=== PATIENT | male | born 1965 ===

== ENCOUNTER 2018-03-23 15:09 | Inpatient (IN) ==
[2018-03-23] MEDS ORDERED: Isovue-370 500 ML INFUS..BTL IV ONE (15:25)
[2018-03-23] MEDS ORDERED: Ipratropium/Albuterol Neb 3 ML IH ONE (15:25)
[2018-03-23] MEDS ORDERED: methylPREDNISolone 125 MG/2 ML VIAL IVP ONE (15:25)
--- NOTE | 2018-03-23 15:27 | Emergency Department Note ---
Disposition Clinical Impression: HCAP (healthcare-associated pneumonia), Metastatic adenocarcinoma, Respiratory distress, Hospital-acquired pneumonia, Severe sepsis Sepsis Qualifiers: Sepsis type: sepsis due to unspecified organism Qualified Code(s): A41.9 - Sepsis, unspecified organism Disposition: Admitted As Inpatient Condition: Fair Referrals: NONE,PCP [Primary Care Provider] - Forms: ED Satisfaction Letter Time of Disposition: 19:57 General Adult HPI - General Chief complaint: ED Shortness of Breath/Dyspnea Stated complaint: LEONIE-stg 4 cancer Time Seen by Provider: 03/23/18 15:18 Source: patient, family Limitations: no limitations Nursing Notes Reviewed: Yes Vital Signs Reviewed: Yes - History of Present Illness HPI Narrative: 52-year-old male with significant past medical history of metastatic cancer unknown primary site either lung or pancreas presenting to the emergency department with chief complaint of acute onset shortness of breath. According to the patient and his power of sports attorney at bedside this afternoon he was moved from his room to the living room so his room could be cleaned and had sudden onset shortness of breath. They deny any fever or recent illnesses. Patient was just diagnosed with his metastatic cancer 14 days ago. He was admitted here and was fully evaluated at that time. Patient has started radiation but no chemotherapy has been started. At this time patient is on a nonrebreather and denies any shortness of breath. Denies any chest pain or abdominal pain. - Related Data Previous Rx's Medication Instructions Recorded Albuterol Sulfate [Albuterol 1 - 2 puff IH Q4HR PRN 30 Days #1 03/18/18 Inhaler] hfa.aer.ad Alcohol Antiseptic Pads [Alcohol 1 each ACHS #100 med..pad 03/18/18 Pads] Bisacodyl [Dulcolax] 10 mg RC DAILY PRN #30 supp.rect 03/18/18 Blood Sugar Diagnostic [Blood 1 each ACHS #100 strip 03/18/18 Glucose Test Strip] Blood-Glucose Meter [Blood Glucose 1 each ACHS #1 each 03/18/18 Monitoring] Dextrose [Glucose] 4 gm PO PRN PRN #10 tab.chew 03/18/18 DiphenhydraMINE [Benadryl] 25 mg PO Q8HR PRN #10 capsule 03/18/18 FentaNYL PATCH [Duragesic] 25 mcg TD Q72H 9 Days #3 patch.td72 03/18/18 Fluconazole [Diflucan] 100 mg PO DAILY #7 tablet 03/18/18 Fluticasone/Umeclidin/Vilanter 1 each IH DAILY 30 Days #1 03/18/18 [Trelegy Ellipta 100-62.5-25] blst.w.dev Insulin LISPRO [Humalog Kwikpen 0 unit SQ ACHS #5 mls 03/18/18 U-100] Ipratropium/Albuterol Neb [Duoneb] 3 ml IH Q4HWA PRN 30 Days inhsol 03/18/18 Lancets 1 each MC ACHS #100 each 03/18/18 Mag Hydrox/Al Hydrox/Simeth 30 ml PO Q4H PRN #30 udc 03/18/18 [Maalox] Melatonin 3 mg PO HS PRN #10 tablet 03/18/18 Nebulizer and Compressor [Ombra 1 each MC Q4H PRN #1 each 03/18/18 Compressor System] Omeprazole [PriLOSEC] 40 mg PO DAILY@0730 #30 capsule.dr 03/18/18 Polyethylene Glycol 3350 [MiraLAX] 17 gm PO DAILY #30 powd.pack 03/18/18 Sennosides/Docusate Sodium [Senna 1 each PO BID #60 tablet 03/18/18 Plus] Stomatitis Mixture 5 ml PO QIDAC 30 Days mls 03/18/18 levETIRAcetam [Keppra] 500 mg PO Q12HR 30 Days #60 tablet 03/18/18 Dexamethasone [Decadron] 4 mg PO BID 21 Days #25 tab 03/19/18 LORazepam [Ativan] 0.5 mg PO TID PRN 7 Days #28 tablet 03/19/18 OxyCODONE Immed Rel [Roxicodone 10 10 mg PO Q4H PRN 7 Days #42 tab 03/19/18 MG] Allergies Allergy/AdvReac Type Severity Reaction Status Date / Time No Known Allergies Allergy Verified 03/23/18 15:26 All systems ED: reviewed and negative except as stated. Constitutional: Denies: fever, chills Eyes: Reports: as per HPI ENT ED: Reports: as per HPI Cardiovascular: Reports: dyspnea on exertion. Denies: chest pain, palpitations Respiratory: Reports: cough, dyspnea. Denies: hemoptysis, stridor Gastrointestinal: Denies: abdominal pain, nausea, vomiting Genitourinary: Reports: as per HPI Musculoskeletal: Reports: as per HPI Integumentary: Reports: as per HPI Neurological: Denies: numbness, paresthesias Psychiatric: Reports: as per HPI Endocrine: Reports: as per HPI Hematological/Lymphatic: Reports: as per HPI Allergic/Immunologic: Reports: as per HPI Past Medical History - Past Medical History Attestation: Yes The following information was validated with the patient. Source: patient, obtained from family Medical history: Reports: COPD Surgical history: Reports: no surgical history Psychiatric history: Reports: no psych history - Social History Smoking Status: Current every day smoker Smokeless Tobacco Status: No Alcohol use: Reports: none Drug use: Reports: none Physical Exam - General Limitations: no limitations General appearance: alert, in distress (respiratory), cachectic - Head Head exam: atraumatic, normocephalic, normal inspection - Eye Eye exam: Present: normal appearance. Absent: scleral icterus, conjunctival injection - ENT ENT exam: normal exam, mucous membranes moist - Neck Neck exam: Present: normal inspection, full ROM. Absent: tenderness, meningismus - Chest Chest inspection: Present: normal inspection, symmetric chest wall rise. Absent: tenderness, rash - Respiratory Respiratory exam: Present: accessory muscle use, other (Coarse breath sounds bilaterally. Expiratory wheezing heard on the right) - Cardiovascular Cardiovascular exam: Present: normal rhythm, tachycardia, normal heart sounds - Abdominal Exam Abdominal exam: Present: soft, Non-Tender. Absent: distention, guarding, rebound - Extremities Exam Extremities exam: Present: normal inspection, full ROM - Neurological Exam Neurological exam: Present: alert, oriented X3 - Psychiatric Psychiatric exam: Present: normal affect, normal mood - Skin Skin exam: Present: warm, intact Course Course Narrative: 52-year-old male presenting for acute onset shortness of breath. Upon first arrival patient was in significant respiratory distress and placed on nonrebreather and responded well. MS time of assessment he is alert and oriented 3. Hemodynamically stable. Tachycardic in the 120s with oxygen saturation in the upper 90s. Concern for pneumonia versus PE at this time due to patient's significant history. We will obtain basic laboratory analysis including blood cultures, fluid resuscitate, provide with antibiotics and perform a CTA of the chest. Disposition will be admission versus transfer pending evaluation. - Reevaluation(s) Reevaluation #1: Patient's laboratory analysis shows multiple abnormalities including elevated lactic acid, anemia, hyponatremia, elevated troponin. CTA of the chest shows concern for possible pneumonia and worsening metastatic disease. Patient will be given antibiotics for healthcare acquired pneumonia and admitted for further treatment and evaluation. Patient remains alert and oriented 3 and hemodynamically stable. Patient agrees with this plan. I spoke with the hospitalist on-call Dr. Chow who agrees to accept the patient at this time. Vital Signs O2 Sat by Pulse Oximetry 98 03/23/18 15:24 Temperature 97.8 F 03/23/18 15:46 Pulse Rate 125 03/23/18 17:09 Respiratory Rate 26 03/23/18 17:09 Blood Pressure 90/72 03/23/18 17:09 O2 Sat by Pulse Oximetry 99 03/23/18 17:09 Oxygen Delivery Oxygen Delivery Non Rebreather Mask Medical Decision Making - Lab Data Result diagrams: 03/23/18 15:24 03/23/18 15:24 Lab Results 03/23/18 03/23/18 03/23/18 Range/Units 15:24 15:24 15:24 WBC 9.9 D (4.3-11.1) K/mcL RBC 2.68 L (4.19-5.50) M/mcL Hgb 8.2 L (12.9-16.9) g/dL Hct 25.6 L (37.5-50.1) % MCV 95.5 (83.0-100.0) fL MCH 30.6 (28.0-33.3) pg MCHC 32.0 (31.6-35.5) g/dL RDW 21.3 H (11.5-14.5) % Plt Count 163 (140-400) K/mcL MPV 11.7 (9.4-12.4) fL Immature Gran % Test Not Performed Seg Neutrophils % 68.0 % Band Neutrophils % 30.0 H (0-4) % Lymphocytes % 2.0 % Monocytes % Test Not Performed Eosinophils % Test Not Performed Basophils % Test Not Performed Neutrophils # 9.7 H (1.6-8.9) K/mcL Lymphocytes # 0.2 L (0.6-4.6) K/mcL Monocytes # Test Not Performed Eosinophils # Test Not Performed Basophils # Test Not Performed Nucleated RBCs/100 WBC 3.1 H (0) /100 WBC Platelet Estimate Normal (Normal) PT 16.2 H (9.4-12.1) Seconds INR 1.4 APTT 26.5 (26.0-36.0) Seconds Sample Site ABG pH (7.32-7.45) pH Units ABG pCO2 (35-45) mmHg ABG pO2 (85-104) mmHg ABG HCO3 (21-27) mEq/L ABG Total CO2 (20-26) mEq/L ABG O2 Saturation (95-98) % ABG Base Excess (-2 to 3) mEq/L Regino Test O2 Delivery Device Inspired O2 (1-15=lpm [id number]=%) Sodium 127 L (136-145) mEq/L Potassium 4.8 (3.5-5.1) mEq/L Chloride 89 L (98-107) mEq/L Carbon Dioxide 21 L (23-29) mEq/L BUN 26 H (6-20) mg/dL Creatinine 0.94 (0.70-1.30) mg/dL Est GFR ( Amer) > 60 (> 60) Est GFR (Non-Af Amer) > 60 (> 60) BUN/Creatinine Ratio 28 H (6-26) Glucose 138 H (70-105) mg/dL Calculated Osmolality 271 L (280-300) Lactic Acid (0.5-2.2) mmol/L Calcium 9.1 (8.6-10.3) mg/dL Phosphorus 4.2 (2.7-4.5) mg/dL Magnesium 2.1 (1.6-2.6) mg/dL Total Bilirubin 2.0 H (0.3-1.0) mg/dL Direct Bilirubin 0.7 H (0.0-0.2) mg/dL Indirect Bilirubin 1.3 H (0.0-1.2) mg/dL AST 294 H (13-39) Units/L ALT 175 H (7-52) Units/L Alkaline Phosphatase 253 H (34-104) Units/L Troponin I 0.07 H* (< 0.04) ng/mL Serum Total Protein 6.0 L (6.4-8.9) g/dL Albumin 3.6 (3.5-5.7) g/dL Globulin 2.4 (2.4-3.5) g/dL Albumin/Globulin Ratio 1.5 (1.1-2.2) Urine Color (Yellow) Urine Clarity (Clear) Urine pH (5.0-8.0) pH Units Ur Specific [place] (1.010-1.025) Urine Protein (Neg-Trace) mg/dL Urine Glucose (UA) (Normal) mg/dL Urine Ketones (Negative) mg/dL Urine Blood (Negative) Urine Nitrite (Negative) Urine Bilirubin (Negative) Urine Urobilinogen (Normal) mg/dL Ur Leukocyte Esterase (Negative) Ur Culture Indicated? (NO) Blood Type Antibody Screen 03/23/18 03/23/18 03/23/18 Range/Units 15:33 15:47 16:18 WBC (4.3-11.1) K/mcL RBC (4.19-5.50) M/mcL Hgb (12.9-16.9) g/dL Hct (37.5-50.1) % MCV (83.0-100.0) fL MCH (28.0-33.3) pg MCHC (31.6-35.5) g/dL RDW (11.5-14.5) % Plt Count (140-400) K/mcL MPV (9.4-12.4) fL Immature Gran % Seg Neutrophils % % Band Neutrophils % (0-4) % Lymphocytes % % Monocytes % Eosinophils % Basophils % Neutrophils # (1.6-8.9) K/mcL Lymphocytes # (0.6-4.6) K/mcL Monocytes # Eosinophils # Basophils # Nucleated RBCs/100 WBC (0) /100 WBC Platelet Estimate (Normal) PT (9.4-12.1) Seconds INR APTT (26.0-36.0) Seconds Sample Site L Radial ABG pH 7.44 (7.32-7.45) pH Units ABG pCO2 36 (35-45) mmHg ABG pO2 81 L (85-104) mmHg ABG HCO3 24 (21-27) mEq/L ABG Total CO2 25 (20-26) mEq/L ABG O2 Saturation 96 (95-98) % ABG Base Excess 0 (-2 to 3) mEq/L Regino Test Positive O2 Delivery Device NRB Inspired O2 15.0 (1-15=lpm gl82-239=%) Sodium (136-145) mEq/L Potassium (3.5-5.1) mEq/L Chloride (98-107) mEq/L Carbon Dioxide (23-29) mEq/L BUN (6-20) mg/dL Creatinine (0.70-1.30) mg/dL Est GFR ( Amer) (> 60) Est GFR (Non-Af Amer) (> 60) BUN/Creatinine Ratio (6-26) Glucose (70-105) mg/dL Calculated Osmolality (280-300) Lactic Acid 7.6 H* (0.5-2.2) mmol/L Calcium (8.6-10.3) mg/dL Phosphorus (2.7-4.5) mg/dL Magnesium (1.6-2.6) mg/dL Total Bilirubin (0.3-1.0) mg/dL Direct Bilirubin (0.0-0.2) mg/dL Indirect Bilirubin (0.0-1.2) mg/dL AST (13-39) Units/L ALT (7-52) Units/L Alkaline Phosphatase (34-104) Units/L Troponin I (< 0.04) ng/mL Serum Total Protein (6.4-8.9) g/dL Albumin (3.5-5.7) g/dL Globulin (2.4-3.5) g/dL Albumin/Globulin Ratio (1.1-2.2) Urine Color Yellow (Yellow) Urine Clarity Clear (Clear) Urine pH 6.0 (5.0-8.0) pH Units Ur Specific [place] 1.012 (1.010-1.025) Urine Protein Negative (Neg-Trace) mg/dL Urine Glucose (UA) Normal (Normal) mg/dL Urine Ketones Negative (Negative) mg/dL Urine Blood Negative (Negative) Urine Nitrite Negative (Negative) Urine Bilirubin Negative (Negative) Urine Urobilinogen Normal (Normal) mg/dL Ur Leukocyte Esterase Negative (Negative) Ur Culture Indicated? NO (NO) Blood Type Antibody Screen 03/23/18 03/23/18 03/23/18 Range/Units 18:21 18:21 19:24 WBC (4.3-11.1) K/mcL RBC (4.19-5.50) M/mcL Hgb (12.9-16.9) g/dL Hct (37.5-50.1) % MCV (83.0-100.0) fL MCH (28.0-33.3) pg MCHC (31.6-35.5) g/dL RDW (11.5-14.5) % Plt Count (140-400) K/mcL MPV (9.4-12.4) fL Immature Gran % Seg Neutrophils % % Band Neutrophils % (0-4) % Lymphocytes % % Monocytes % Eosinophils % Basophils % Neutrophils # (1.6-8.9) K/mcL Lymphocytes # (0.6-4.6) K/mcL Monocytes # Eosinophils # Basophils # Nucleated RBCs/100 WBC (0) /100 WBC Platelet Estimate (Normal) PT (9.4-12.1) Seconds INR APTT (26.0-36.0) Seconds Sample Site ABG pH (7.32-7.45) pH Units ABG pCO2 (35-45) mmHg ABG pO2 (85-104) mmHg ABG HCO3 (21-27) mEq/L ABG Total CO2 (20-26) mEq/L ABG O2 Saturation (95-98) % ABG Base Excess (-2 to 3) mEq/L Regino Test O2 Delivery Device Inspired O2 (1-15=lpm [id number]=%) Sodium (136-145) mEq/L Potassium (3.5-5.1) mEq/L Chloride (98-107) mEq/L Carbon Dioxide (23-29) mEq/L BUN (6-20) mg/dL Creatinine (0.70-1.30) mg/dL Est GFR ( Amer) (> 60) Est GFR (Non-Af Amer) (> 60) BUN/Creatinine Ratio (6-26) Glucose (70-105) mg/dL Calculated Osmolality (280-300) Lactic Acid 3.0 H 2.7 H (0.5-2.2) mmol/L Calcium (8.6-10.3) mg/dL Phosphorus (2.7-4.5) mg/dL Magnesium (1.6-2.6) mg/dL Total Bilirubin (0.3-1.0) mg/dL Direct Bilirubin (0.0-0.2) mg/dL Indirect Bilirubin (0.0-1.2) mg/dL AST (13-39) Units/L ALT (7-52) Units/L Alkaline Phosphatase (34-104) Units/L Troponin I (< 0.04) ng/mL Serum Total Protein (6.4-8.9) g/dL Albumin (3.5-5.7) g/dL Globulin (2.4-3.5) g/dL Albumin/Globulin Ratio (1.1-2.2) Urine Color (Yellow) Urine Clarity (Clear) Urine pH (5.0-8.0) pH Units Ur Specific [place] (1.010-1.025) Urine Protein (Neg-Trace) mg/dL Urine Glucose (UA) (Normal) mg/dL Urine Ketones (Negative) mg/dL Urine Blood (Negative) Urine Nitrite (Negative) Urine Bilirubin (Negative) Urine Urobilinogen (Normal) mg/dL Ur Leukocyte Esterase (Negative) Ur Culture Indicated? (NO) Blood Type A POSITIVE Antibody Screen NEGATIVE - EKG Data EKG #1 EKG attestation: Yes I reviewed and interpreted this EKG. EKG results narrative: Sinus tachycardia. 124 bpm. DC interval 117, QRS 96, QTC 428. No sign of acute ST segment elevation or ischemia. Compared to previous EKG completed on 03/07/2018 new sinus tachycardia but otherwise no changes
--- NOTE | 2018-03-23 15:31 | Emergency Department Note ---
Disposition Clinical Impression: Hospital-acquired pneumonia, Severe sepsis Disposition: Admitted As Inpatient Condition: Fair Referrals: NONE,PCP [Primary Care Provider] - Forms: ED Satisfaction Letter General Adult HPI - General Chief complaint: ED Shortness of Breath/Dyspnea Stated complaint: LEONIE-stg 4 cancer Time Seen by Provider: 03/23/18 15:18 - Related Data Previous Rx's Medication Instructions Recorded Albuterol Sulfate [Albuterol 1 - 2 puff IH Q4HR PRN 30 Days #1 03/18/18 Inhaler] hfa.aer.ad Alcohol Antiseptic Pads [Alcohol 1 each ACHS #100 med..pad 03/18/18 Pads] Bisacodyl [Dulcolax] 10 mg RC DAILY PRN #30 supp.rect 03/18/18 Blood Sugar Diagnostic [Blood 1 each MC ACHS #100 strip 03/18/18 Glucose Test Strip] Blood-Glucose Meter [Blood Glucose 1 each MC ACHS #1 each 03/18/18 Monitoring] Dextrose [Glucose] 4 gm PO PRN PRN #10 tab.chew 03/18/18 DiphenhydraMINE [Benadryl] 25 mg PO Q8HR PRN #10 capsule 03/18/18 FentaNYL PATCH [Duragesic] 25 mcg TD Q72H 9 Days #3 patch.td72 03/18/18 Fluconazole [Diflucan] 100 mg PO DAILY #7 tablet 03/18/18 Fluticasone/Umeclidin/Vilanter 1 each IH DAILY 30 Days #1 03/18/18 [Trelegy Ellipta 100-62.5-25] blst.w.dev Insulin LISPRO [Humalog Kwikpen 0 unit SQ ACHS #5 mls 03/18/18 U-100] Ipratropium/Albuterol Neb [Duoneb] 3 ml IH Q4HWA PRN 30 Days inhsol 03/18/18 Lancets 1 each MC ACHS #100 each 03/18/18 Mag Hydrox/Al Hydrox/Simeth 30 ml PO Q4H PRN #30 udc 03/18/18 [Maalox] Melatonin 3 mg PO HS PRN #10 tablet 03/18/18 Nebulizer and Compressor [Ombra 1 each MC Q4H PRN #1 each 03/18/18 Compressor System] Omeprazole [PriLOSEC] 40 mg PO DAILY@729 #30 capsule. 03/18/18 Polyethylene Glycol 3350 [MiraLAX] 17 gm PO DAILY #30 powd.pack 03/18/18 Sennosides/Docusate Sodium [Senna 1 each PO BID #60 tablet 03/18/18 Plus] Stomatitis Mixture 5 ml PO QIDAC 30 Days mls 03/18/18 levETIRAcetam [Keppra] 500 mg PO Q12HR 30 Days #60 tablet 03/18/18 Dexamethasone [Decadron] 4 mg PO BID 21 Days #25 tab 03/19/18 LORazepam [Ativan] 0.5 mg PO TID PRN 7 Days #28 tablet 03/19/18 OxyCODONE Immed Rel [Roxicodone 10 10 mg PO Q4H PRN 7 Days #42 tab 03/19/18 MG] Allergies Allergy/AdvReac Type Severity Reaction Status Date / Time No Known Allergies Allergy Verified 03/23/18 15:26 Past Medical History - Past Medical History Medical history: Reports: COPD Surgical history: Reports: no surgical history Psychiatric history: Reports: no psych history - Social History Smoking Status: Current every day smoker Smokeless Tobacco Status: No Alcohol use: Reports: none Drug use: Reports: none Course Vital Signs O2 Sat by Pulse Oximetry 98 03/23/18 15:24 Temperature 97.8 F 03/23/18 15:46 Pulse Rate 126 03/23/18 19:54 Respiratory Rate 24 03/23/18 19:54 Blood Pressure 100/88 03/23/18 19:54 O2 Sat by Pulse Oximetry 97 03/23/18 19:54 Oxygen Delivery Oxygen Delivery Non Rebreather Mask Medical Decision Making - Lab Data Result diagrams: 03/23/18 15:24 03/23/18 15:24 Lab Results 03/23/18 03/23/18 03/23/18 Range/Units 15:24 15:24 15:24 WBC 9.9 D (4.3-11.1) K/mcL RBC 2.68 L (4.19-5.50) M/mcL Hgb 8.2 L (12.9-16.9) g/dL Hct 25.6 L (37.5-50.1) % MCV 95.5 (83.0-100.0) fL MCH 30.6 (28.0-33.3) pg MCHC 32.0 (31.6-35.5) g/dL RDW 21.3 H (11.5-14.5) % Plt Count 163 (140-400) K/mcL MPV 11.7 (9.4-12.4) fL Immature Gran % Test Not Performed Seg Neutrophils % 68.0 % Band Neutrophils % 30.0 H (0-4) % Lymphocytes % 2.0 % Monocytes % Test Not Performed Eosinophils % Test Not Performed Basophils % Test Not Performed Neutrophils # 9.7 H (1.6-8.9) K/mcL Lymphocytes # 0.2 L (0.6-4.6) K/mcL Monocytes # Test Not Performed Eosinophils # Test Not Performed Basophils # Test Not Performed Nucleated RBCs/100 WBC 3.1 H (0) /100 WBC Platelet Estimate Normal (Normal) PT 16.2 H (9.4-12.1) Seconds INR 1.4 APTT 26.5 (26.0-36.0) Seconds Sample Site ABG pH (7.32-7.45) pH Units ABG pCO2 (35-45) mmHg ABG pO2 (85-104) mmHg ABG HCO3 (21-27) mEq/L ABG Total CO2 (20-26) mEq/L ABG O2 Saturation (95-98) % ABG Base Excess (-2 to 3) mEq/L Regino Test O2 Delivery Device Inspired O2 (1-15=lpm [id number]=%) Sodium 127 L (136-145) mEq/L Potassium 4.8 (3.5-5.1) mEq/L Chloride 89 L (98-107) mEq/L Carbon Dioxide 21 L (23-29) mEq/L BUN 26 H (6-20) mg/dL Creatinine 0.94 (0.70-1.30) mg/dL Est GFR ( Amer) > 60 (> 60) Est GFR (Non-Af Amer) > 60 (> 60) BUN/Creatinine Ratio 28 H (6-26) Glucose 138 H (70-105) mg/dL Calculated Osmolality 271 L (280-300) Lactic Acid (0.5-2.2) mmol/L Calcium 9.1 (8.6-10.3) mg/dL Phosphorus 4.2 (2.7-4.5) mg/dL Magnesium 2.1 (1.6-2.6) mg/dL Total Bilirubin 2.0 H (0.3-1.0) mg/dL Direct Bilirubin 0.7 H (0.0-0.2) mg/dL Indirect Bilirubin 1.3 H (0.0-1.2) mg/dL AST 294 H (13-39) Units/L ALT 175 H (7-52) Units/L Alkaline Phosphatase 253 H (34-104) Units/L Troponin I 0.07 H* (< 0.04) ng/mL Serum Total Protein 6.0 L (6.4-8.9) g/dL Albumin 3.6 (3.5-5.7) g/dL Globulin 2.4 (2.4-3.5) g/dL Albumin/Globulin Ratio 1.5 (1.1-2.2) Urine Color (Yellow) Urine Clarity (Clear) Urine pH (5.0-8.0) pH Units Ur Specific [place] (1.010-1.025) Urine Protein (Neg-Trace) mg/dL Urine Glucose (UA) (Normal) mg/dL Urine Ketones (Negative) mg/dL Urine Blood (Negative) Urine Nitrite (Negative) Urine Bilirubin (Negative) Urine Urobilinogen (Normal) mg/dL Ur Leukocyte Esterase (Negative) Ur Culture Indicated? (NO) Blood Type Antibody Screen 03/23/18 03/23/18 03/23/18 Range/Units 15:33 15:47 16:18 WBC (4.3-11.1) K/mcL RBC (4.19-5.50) M/mcL Hgb (12.9-16.9) g/dL Hct (37.5-50.1) % MCV (83.0-100.0) fL MCH (28.0-33.3) pg MCHC (31.6-35.5) g/dL RDW (11.5-14.5) % Plt Count (140-400) K/mcL MPV (9.4-12.4) fL Immature Gran % Seg Neutrophils % % Band Neutrophils % (0-4) % Lymphocytes % % Monocytes % Eosinophils % Basophils % Neutrophils # (1.6-8.9) K/mcL Lymphocytes # (0.6-4.6) K/mcL Monocytes # Eosinophils # Basophils # Nucleated RBCs/100 WBC (0) /100 WBC Platelet Estimate (Normal) PT (9.4-12.1) Seconds INR APTT (26.0-36.0) Seconds Sample Site L Radial ABG pH 7.44 (7.32-7.45) pH Units ABG pCO2 36 (35-45) mmHg ABG pO2 81 L (85-104) mmHg ABG HCO3 24 (21-27) mEq/L ABG Total CO2 25 (20-26) mEq/L ABG O2 Saturation 96 (95-98) % ABG Base Excess 0 (-2 to 3) mEq/L Regino Test Positive O2 Delivery Device NRB Inspired O2 15.0 (1-15=lpm [id number]=%) Sodium (136-145) mEq/L Potassium (3.5-5.1) mEq/L Chloride (98-107) mEq/L Carbon Dioxide (23-29) mEq/L BUN (6-20) mg/dL Creatinine (0.70-1.30) mg/dL Est GFR ( Amer) (> 60) Est GFR (Non-Af Amer) (> 60) BUN/Creatinine Ratio (6-26) Glucose (70-105) mg/dL Calculated Osmolality (280-300) Lactic Acid 7.6 H* (0.5-2.2) mmol/L Calcium (8.6-10.3) mg/dL Phosphorus (2.7-4.5) mg/dL Magnesium (1.6-2.6) mg/dL Total Bilirubin (0.3-1.0) mg/dL Direct Bilirubin (0.0-0.2) mg/dL Indirect Bilirubin (0.0-1.2) mg/dL AST (13-39) Units/L ALT (7-52) Units/L Alkaline Phosphatase (34-104) Units/L Troponin I (< 0.04) ng/mL Serum Total Protein (6.4-8.9) g/dL Albumin (3.5-5.7) g/dL Globulin (2.4-3.5) g/dL Albumin/Globulin Ratio (1.1-2.2) Urine Color Yellow (Yellow) Urine Clarity Clear (Clear) Urine pH 6.0 (5.0-8.0) pH Units Ur Specific [place] 1.012 (1.010-1.025) Urine Protein Negative (Neg-Trace) mg/dL Urine Glucose (UA) Normal (Normal) mg/dL Urine Ketones Negative (Negative) mg/dL Urine Blood Negative (Negative) Urine Nitrite Negative (Negative) Urine Bilirubin Negative (Negative) Urine Urobilinogen Normal (Normal) mg/dL Ur Leukocyte Esterase Negative (Negative) Ur Culture Indicated? NO (NO) Blood Type Antibody Screen 03/23/18 03/23/18 03/23/18 Range/Units 18:21 18:21 19:24 WBC (4.3-11.1) K/mcL RBC (4.19-5.50) M/mcL Hgb (12.9-16.9) g/dL Hct (37.5-50.1) % MCV (83.0-100.0) fL MCH (28.0-33.3) pg MCHC (31.6-35.5) g/dL RDW (11.5-14.5) % Plt Count (140-400) K/mcL MPV (9.4-12.4) fL Immature Gran % Seg Neutrophils % % Band Neutrophils % (0-4) % Lymphocytes % % Monocytes % Eosinophils % Basophils % Neutrophils # (1.6-8.9) K/mcL Lymphocytes # (0.6-4.6) K/mcL Monocytes # Eosinophils # Basophils # Nucleated RBCs/100 WBC (0) /100 WBC Platelet Estimate (Normal) PT (9.4-12.1) Seconds INR APTT (26.0-36.0) Seconds Sample Site ABG pH (7.32-7.45) pH Units ABG pCO2 (35-45) mmHg ABG pO2 (85-104) mmHg ABG HCO3 (21-27) mEq/L ABG Total CO2 (20-26) mEq/L ABG O2 Saturation (95-98) % ABG Base Excess (-2 to 3) mEq/L Regino Test O2 Delivery Device Inspired O2 (1-15=lpm lr35-113=%) Sodium (136-145) mEq/L Potassium (3.5-5.1) mEq/L Chloride (98-107) mEq/L Carbon Dioxide (23-29) mEq/L BUN (6-20) mg/dL Creatinine (0.70-1.30) mg/dL Est GFR ( Amer) (> 60) Est GFR (Non-Af Amer) (> 60) BUN/Creatinine Ratio (6-26) Glucose (70-105) mg/dL Calculated Osmolality (280-300) Lactic Acid 3.0 H 2.7 H (0.5-2.2) mmol/L Calcium (8.6-10.3) mg/dL Phosphorus (2.7-4.5) mg/dL Magnesium (1.6-2.6) mg/dL Total Bilirubin (0.3-1.0) mg/dL Direct Bilirubin (0.0-0.2) mg/dL Indirect Bilirubin (0.0-1.2) mg/dL AST (13-39) Units/L ALT (7-52) Units/L Alkaline Phosphatase (34-104) Units/L Troponin I (< 0.04) ng/mL Serum Total Protein (6.4-8.9) g/dL Albumin (3.5-5.7) g/dL Globulin (2.4-3.5) g/dL Albumin/Globulin Ratio (1.1-2.2) Urine Color (Yellow) Urine Clarity (Clear) Urine pH (5.0-8.0) pH Units Ur Specific [place] (1.010-1.025) Urine Protein (Neg-Trace) mg/dL Urine Glucose (UA) (Normal) mg/dL Urine Ketones (Negative) mg/dL Urine Blood (Negative) Urine Nitrite (Negative) Urine Bilirubin (Negative) Urine Urobilinogen (Normal) mg/dL Ur Leukocyte Esterase (Negative) Ur Culture Indicated? (NO) Blood Type A POSITIVE Antibody Screen NEGATIVE Critical Care Time Critical Care Time: Yes Total Critical Care Time: 45 Attestation: Critical care performed: Time is exclusive of separately billable procedures. Time includes: direct patient care, patient reassessment, coordination of patient care, interpretation of data (laboratory data, radiology data, and respiratory data), review of patient's medical records, medical consultation and documentation of patient care. Procedures included in critical care time: Procedures excluded from critical care time: Attestation Statement - Attestation Attestation: I examined this patient and my medical decision-making was reviewed with the Resident Physician. I agree with the documented findings, disposition and treatment plan as described except to the extent set forth below. Patient presents to the ED with shortness of breath. He is brought in by his brother. 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 He states he was short of breath today so brings him for evaluation. Patient was recently diagnosed 2 weeks ago with his cancer. He has been undergoing some radiation. On examination he is in no acute distress. Lungs with diffuse wheezing. He was satting in the 70s. He states he feels fine on nonrebreather. Plan. Septic workup. Nebs and steroids. Reevaluate. Patient reevaluated. Still in no distress. CTA does not reveal any blood clots. He is received broad-spectrum in about X. He has had a 30 per kidney bolus of fluids. Repeat lactate is ordered. Discussed with hospitalist Dr. Pascual who accepts. Recommends ICU admission. I agree. I did discuss the patient's prognosis with him. Patient still wants to be a full code and states he wants everything done. Chest X-Ray 03/23/18 15:24 IMPRESSION: Mediastinal and right hilar lymph node mass again evident. Interval development of right pleural effusion as well as left basilar airspace disease and diffuse right lung airspace disease, greatest within its base. Findings are suggestive of pneumonia. Given some prominence of interstitial markings, component of edema or lymphangitic spread of carcinoma could be considered. D/ / Eboni Gifford Cha, MD / Eboni Gifford Cha, MD Interpreting Provider: Eboni Gifford Cha, MD Chest CTA 03/23/18 15:25 IMPRESSION: No evidence of pulmonary embolism. Right hilar infiltrative mass, likely related to neoplasm, encasing the right pulmonary artery, right pulmonary veins and right mainstem bronchus, mildly increased in size since the prior study. Mediastinal lymphadenopathy, contiguous with the right hilar mass, likely related to metastatic disease. Interval volume loss with consolidation in the posterior right upper lobe, likely related to atelectasis, with underlying neoplasm and possible superimposed infection/inflammation. Scattered lung nodules, grossly stable, likely related to metastatic disease. Interval increased airspace consolidation at the bilateral lung bases, likely related to atelectasis and superimposed pneumonia. Liver metastasis, likely increased. Bilateral adrenal metastasis, right more than left. Acute to subacute pathologic fracture of the T6 with 70% height loss, progressed. Mild acute pathologic fracture at the superior endplate T3 with 10% height loss, new since the prior study. Mildly prominent main pulmonary artery size, likely related to mild pulmonary hypertension. D/ / Yan Santiago MD / Yan Santiago MD Interpreting Provider: Yan Santiago MD
[2018-03-23 15:47] LABS: Hematocrit 25.6 % (37.5-50.1); Hemoglobin 8.2 g/dL (12.9-16.9); Mean Corpuscular Hemoglobin 30.6 pg (28.0-33.3); Mean Corpuscular Volume 95.5 fL (83.0-100.0); Mean Platelet Volume 11.7 fL (9.4-12.4); Nucleated Red Blood Cells 3.1 /100 WBC (0); Platelet Count 163 K/mcL (140-400); Red Blood Count 2.68 M/mcL (4.19-5.50); Red Cell Distribution Width 21.3 % (11.5-14.5)
[2018-03-23 15:51] LABS: ABG Base Excess 0 mEq/L (-2 to 3); ABG HCO3 24 mEq/L (21-27); ABG Oxygen Saturation 96 % (95-98); ABG PCO2 36 mmHg (35-45); ABG PH 7.44 pH Units (7.32-7.45); ABG PO2 81 mmHg (85-104); ABG TCO2 25 mEq/L (20-26)
[2018-03-23 15:55] LABS: INR 1.4; Prothrombin Time 16.2 Seconds (9.4-12.1)
[2018-03-23 15:57] LABS: Activated Partial Thrombo Time 26.5 Seconds (26.0-36.0)
[2018-03-23 16:09] LABS: Alanine Aminotransferase 175 Units/L (7-52); Albumin 3.6 g/dL (3.5-5.7); Albumin/Globulin Ratio 1.5 (1.1-2.2); Alkaline Phosphatase 253 Units/L (34-104); Aspartate Amino Transferase 294 Units/L (13-39); BUN/Creatinine Ratio 28 (6-26); Bilirubin,Direct 0.7 mg/dL (0.0-0.2); Bilirubin,Indirect 1.3 mg/dL (0.0-1.2); Blood Urea Nitrogen 26 mg/dL (6-20); Calcium 9.1 mg/dL (8.6-10.3); Carbon Dioxide 21 mEq/L (23-29); Chloride 89 mEq/L (98-107); Globulin 2.4 g/dL (2.4-3.5); Glucose 138 mg/dL (70-105); Magnesium 2.1 mg/dL (1.6-2.6); Osmolality,Calculated 271 (280-300); Phosphorous 4.2 mg/dL (2.7-4.5); Potassium 4.8 mEq/L (3.5-5.1); Sodium 127 mEq/L (136-145); eGFR For Non-African Americans > 60 (> 60)
[2018-03-23 16:13] LABS: Troponin I 0.07 ng/mL (< 0.04)
[2018-03-23] MEDS ORDERED: 0.9 % Sodium Chloride 1,000 ML IVC ONE ×2 (16:24→16:42)
[2018-03-23 16:28] LABS: Lymphocytes # 0.2 K/mcL (0.6-4.6); Neutrophils # 9.7 K/mcL (1.6-8.9); Platelet Estimate Normal (Normal)
[2018-03-23] MEDS ORDERED: Cefepime HCl 2,000 MG in Water for inj. (sterile) 20 ML 20 ML IVP STA (16:42)
[2018-03-23] MEDS ORDERED: Piperacillin/Tazobactam 3.375 GM in 0.9 % Sodium Chloride Mini Bag 100 ML IVPB ONE (16:42)
[2018-03-23 16:52] LABS: Bilirubin,Urine Negative (Negative); Blood,Urine Negative (Negative); Clarity,Urine Clear (Clear); Color,Urine Yellow (Yellow); Glucose,Urine (UA) Normal (Normal); Ketones,Urine Negative (Negative); Leukocyte Esterase,Urine Negative (Negative); Nitrite,Urine Negative (Negative); Protein,Urine Negative (Neg-Trace); Specific Gravity,Urine 1.012 (1.010-1.025); Urobilinogen,Urine Normal (Normal)
[2018-03-23] MEDS ORDERED: Dexmedetomidine HCl 400 MCG/100 ML MLS IVC ONE (21:40)
[2018-03-23] MEDS ORDERED: Naloxone 0.4 MG/ML INJ IVP PRN (21:41)
[2018-03-23] MEDS ORDERED: Vancomycin (wt based) 1,000 MG VIAL IVPB SCH (22:00)
[2018-03-23] MEDS ORDERED: Dextrose Gel 15 GM/37.5 ML TUBE PO PRN ×2 (22:17)
[2018-03-23] MEDS ORDERED: *HR* Dextrose 50 % in Water (Syg) 50 ML SYRINGE IVP PRN (22:17)
[2018-03-23] MEDS ORDERED: D5% in Water 1,000 ML IVC PRN (22:17)
--- NOTE | 2018-03-23 22:19 | Internal Med History&Physical ---
Date of Encounter: 03/23/18 Time of Encounter: 21:20 Internal Medicine - H&P: HPI Chief complaint: Acute 87 hypoxic respiratory failure Admitted From: Emergency Dept Plans for Post Hospital Care: Home History of present illness: Mr. Timmons is a 52 year old male Patient presented to the ER with shortness of breath and hypoxia. He was recently discharged from the hospital less than a week ago, diagnosed with metastatic cancer, anemia, hyponatremia and COPD exacerbation. He states that he was with his home health nurse, who noted that he had low oxygen despite being on 4 L nasal cannula. Patient is also becoming short of breath, so the decision was made to take the patient back to the hospital for further evalua tion. Patient's brother who is the [employer]EL[employer] is present at bedside and assists with questions. In the emergency room patient's hemoglobin was found to be 8.2, and sodium of 127. Patient's ABG showed a pH of 7.44, PCO2 of 36 and a PO2 of 81. Patient has elevated liver enzymes, as well as a troponin of 0.07. Patient's lactic acid also was elevated at 7.6, which improved to 3.0 and 2.7 on recheck. Patient's urinalysis was negative. Chest x-ray showed medullary and right hilar mass with a right pleural effusion and possible pneumonia. This is questionable in his setting of metastatic cancer as this may be spread of his carcinoma. CT angios was ordered that showed pleural effusion and right hilar inferior mass. This is likely thought to be neoplasm which was increased from his previous imaging. There are also nodules liver masses and adrenal mass is seen. Patient's EKG showed sinus tachycardia with a rate of 124 but no ischemic changes. Patient was put on an oxygen mask at 15 L/m saturations in the low 90s. Patient's blood pressure was 79/60 initially in the emergency room, he was given 2 L of normal saline boluses. He was admitted to the ICU for further m anagement. Upon my evaluation in the ICU patient is working hard to breathe with the oxygen mask. I discussed with the patient and his DPOA that BiPAP would be our next step, and they agreed. Patient denies chest pain, nausea, vomiting, diarrhea, constipation and abdominal pain. Shortness of breath is improving but his oxygenation continues to be in the low 90s to upper to mid 80s. Discussed with the patient and [employer]EL[employer] regarding CODE STATUS and possible intubation, and at this point the patient and DPOA request everything to be done including intubation if necessary. He is a full code. Past Med Surg Social Fam HX - Past Medical History Medical history: COPD Additional medical history: lung cancer w/brain mets Psychiatric history: no psych history - Past Surgical History Surgical History: no surgical history - Social History Smoking Status: Current every day smoker Smokeless Tobacco Status: No Alcohol use: none Drug use: none - Family History Father Hx Family Respiratory Disorders: Yes (COPD) Internal Medicine - H&P: Meds Albuterol Sulfate [Albuterol Inhaler] 1 - 2 puff IH Q4HR PRN 30 Days #1 hfa.aer.ad 03/18/18 [Rx] Alcohol Antiseptic Pads [Alcohol Pads] 1 each TP ACHS #100 med..pad 03/18/18 [Rx] Bisacodyl [Dulcolax] 10 mg RC DAILY PRN #30 supp.rect 03/18/18 [Rx] Blood Sugar Diagnostic [Blood Glucose Test Strip] 1 each MC ACHS #100 strip 03/18/18 [Rx] Blood-Glucose Meter [Blood Glucose Monitoring] 1 each MC ACHS #1 each 03/18/18 [Rx] Dextrose [Glucose] 4 gm PO PRN PRN #10 tab.chew 03/18/18 [Rx] DiphenhydraMINE [Benadryl] 25 mg PO Q8HR PRN #10 capsule 03/18/18 [Rx] FentaNYL PATCH [Duragesic] 25 mcg TD Q72H 9 Days #3 patch.td72 03/18/18 [Rx] Fluconazole [Diflucan] 100 mg PO DAILY #7 tablet 03/18/18 [Rx] Fluticasone/Umeclidin/Vilanter [Trelegy Ellipta 100-62.5-25] 1 each IH DAILY 30 Days #1 blst.w.dev 03/18/18 [Rx] Insulin LISPRO [Humalog Kwikpen U-100] 0 unit SQ ACHS #5 mls 03/18/18 [Rx] Ipratropium/Albuterol Neb [Duoneb] 3 ml IH Q4HWA PRN 30 Days inhsol 03/18/18 [Rx] Lancets 1 each MC ACHS #100 each 03/18/18 [Rx] Mag Hydrox/Al Hydrox/Simeth [Maalox] 30 ml PO Q4H PRN #30 udc 03/18/18 [Rx] Melatonin 3 mg PO HS PRN #10 tablet 03/18/18 [Rx] Nebulizer and Compressor [Ombra Compressor System] 1 each MC Q4H PRN #1 each 03/18/18 [Rx] Omeprazole [PriLOSEC] 40 mg PO DAILY@0730 #30 capsule.dr 03/18/18 [Rx] Polyethylene Glycol 3350 [MiraLAX] 17 gm PO DAILY #30 powd.pack 03/18/18 [Rx] Sennosides/Docusate Sodium [Senna Plus] 1 each PO BID #60 tablet 03/18/18 [Rx] Stomatitis Mixture 5 ml PO QIDAC 30 Days mls 03/18/18 [Rx] levETIRAcetam [Keppra] 500 mg PO Q12HR 30 Days #60 tablet 03/18/18 [Rx] Dexamethasone [Decadron] 4 mg PO BID 21 Days #25 tab 03/19/18 [Rx] LORazepam [Ativan] 0.5 mg PO TID PRN 7 Days #28 tablet 03/19/18 [Rx] OxyCODONE Immed Rel [Roxicodone 10 MG] 10 mg PO Q4H PRN 7 Days #42 tab 03/19/18 [Rx] Allergy/AdvReac Type Severity Reaction Status Date / Time No Known Allergies Allergy Verified 03/23/18 15:26 All Systems PM: A 10-system review of systems was performed and is negative for pertinent findings except as documented above in the HPI. - Constitutional Vitals: Temp Pulse Resp BP Pulse Ox 97.6 F 120 18 109/73 91 03/23/18 20:30 03/23/18 22:00 03/23/18 22:00 03/23/18 22:00 03/23/18 22:00 General appearance: Present: cooperative, mild distress, A&O X 3, pleasant, answers questions appropriately Exam: As below - Head Head exam: Present: normal inspection - Eye Eye exam: Present: EOMI, normal appearance - ENT ENT exam: Present: mucous membranes dry - Respiratory Respiratory exam: Present: accessory muscle use, rales, respiratory distress, rhonchi, wheezes. Absent: CTAB - Cardiovascular Cardiovascular exam: Present: RRR. Absent: diastolic murmur, systolic murmur - GI/Abdominal GI/Abdominal exam: Present: normal bowel sounds, soft. Absent: tenderness - Extremities Exam Extremities exam: Present: warm, radial pulses palpable and symmetrical. Absent: calf tenderness, tenderness - Neurological Exam Neurological exam: Present: no focal deficits, strengths equal and symetr throughout. Absent: motor sensory deficit, facial droop, speech deficit - Skin Skin exam: Present: abrasion, dry, normal color, warm Additional comments: Multiple scratch tamez on abdomen and chest, no erythema Internal Med - H&P Results - Labs CBC & Chem 7: 03/24/18 04:14 03/24/18 04:14 Labs: Short CBC 03/23/18 Range/Units 15:24 WBC 9.9 D (4.3-11.1) K/mcL Hgb 8.2 L (12.9-16.9) g/dL Hct 25.6 L (37.5-50.1) % Plt Count 163 (140-400) K/mcL Neutrophils # 9.7 H (1.6-8.9) K/mcL BMP 03/23/18 15:24 Sodium 127 L Potassium 4.8 Chloride 89 L Carbon Dioxide 21 L BUN 26 H Creatinine 0.94 Glucose 138 H Calcium 9.1 Cardiac Enzymes 03/23/18 Range/Units 15:24 Troponin I 0.07 H* (< 0.04) ng/mL Liver Function 03/23/18 Range/Units 15:24 Total Bilirubin 2.0 H (0.3-1.0) mg/dL Direct Bilirubin 0.7 H (0.0-0.2) mg/dL AST 294 H (13-39) Units/L ALT 175 H (7-52) Units/L Alkaline Phosphatase 253 H (34-104) Units/L Albumin 3.6 (3.5-5.7) g/dL Urine 03/23/18 Range/Units 16:18 Urine Color Yellow (Yellow) Urine Clarity Clear (Clear) Urine pH 6.0 (5.0-8.0) pH Units Ur Specific [place] 1.012 (1.010-1.025) Urine Protein Negative (Neg-Trace) mg/dL Urine Glucose (UA) Normal (Normal) mg/dL - ABG Interpretation ABG results: 03/23/18 15:47 ABG pH 7.44 ABG pCO2 36 ABG pO2 81 L ABG HCO3 24 ABG Total CO2 25 ABG O2 Saturation 96 ABG Base Excess 0 - Impressions ITS Impressions Chest X-Ray 03/23/18 15:24 IMPRESSION: Mediastinal and right hilar lymph node mass again evident. Interval development of right pleural effusion as well as left basilar airspace disease and diffuse right lung airspace disease, greatest within its base. Findings are suggestive of pneumonia. Given some prominence of interstitial markings, component of edema or lymphangitic spread of carcinoma could be considered. D/ / Eboni Gifford Cha, MD / Eboni Gifford Cha, MD Interpreting Provider: Eboni Gifford Cha, MD Chest CTA 03/23/18 15:25 IMPRESSION: No evidence of pulmonary embolism. Right hilar infiltrative mass, likely related to neoplasm, encasing the right pulmonary artery, right pulmonary veins and right mainstem bronchus, mildly increased in size since the prior study. Mediastinal lymphadenopathy, contiguous with the right hilar mass, likely related to metastatic disease. Interval volume loss with consolidation in the posterior right upper lobe, likely related to atelectasis, with underlying neoplasm and possible superimposed infection/inflammation. Scattered lung nodules, grossly stable, likely related to metastatic disease. Interval increased airspace consolidation at the bilateral lung bases, likely related to atelectasis and superimposed pneumonia. Liver metastasis, likely increased. Bilateral adrenal metastasis, right more than left. Acute to subacute pathologic fracture of the T6 with 70% height loss, progressed. Mild acute pathologic fracture at the superior endplate T3 with 10% height loss, new since the prior study. Mildly prominent main pulmonary artery size, likely related to mild pulmonary hypertension. D/ / Yan Santiago MD / Yan Santiago MD Interpreting Provider: Yan Santiago MD - Assessment and plan (1) Acute respiratory failure with hypoxia Current Visit: No Status: Resolved Assessment and plan: Likely secondary to metastatic disease and pneumonia. Treatment as below. (2) Severe sepsis Current Visit: Yes Status: Acute Assessment and plan: Patient had tachycardia, increased respiratory rate and low blood pressure in the emergency room. He was also hypoxic on oxygen mask. Found to have pneumonia. Lactate also elevated at 7.6 initially. Improved to 2.7 after fluids. Continue IV fluid hydration Treatment for pneumonia as below Continue to monitor (3) Anemia Current Visit: No Status: Chronic Assessment and plan: Patient's initial hemoglobin in the emergency room was 8.2. Recheck was 8.1, and 7.4 this morning. Patient was typed and screened in the emergency room. No active bleeding noted. Transfuse as needed Monitor CBCs, recheck at 10 AM. Qualifiers: Anemia type: other cause Other causes of anemia: chronic disease, neoplastic Qualified Code(s): D63.0 - Anemia in neoplastic disease (4) COPD with exacerbation Current Visit: No Status: Acute Assessment and plan: Patient wheezy on exam as well as crackles heard throughout lungs. Breathing treatments in the emergency room improved patient's shortness of breath. Continue breathing treatments Continue IV steroids Continue supplemental oxygen nasal cannula or BiPAP as needed. Respiratory therapy consult (5) Hyponatremia Current Visit: No Status: Acute Assessment and plan: Patient was given 2 L normal saline in the emergency room Repeat labs in the morning show a corrected sodium of 136. (6) HCAP (healthcare-associated pneumonia) Current Visit: Yes Status: Acute Assessment and plan: Recently discharged from hospital, CT angios showed right upper lobe possible superimposed infection and inflammation as well as interval increase airspace consolidation bilateral lung bases. Patient has multiple masses throughout lungs as well as nodules. Emergency room started him on cefepime, vancomycin and Zosyn. Blood cultures were drawn. Preliminary blood culture results show gram-positive cocci, Streptococcus pneumoniae. Continue antibiotic therapy Follow-up blood culture sensitivities Continue to monitor (7) Elevated troponin Current Visit: Yes Status: Acute Assessment and plan: Elevated initially at 0.07, improving to 0.06 and now 0.04. Likely secondary to demand ischemia and hypoxia. Patient denies chest pain. EKG without ischemic changes. Continue cardiac monitoring Continue to trend troponin. (8) Lung mass Current Visit: No Status: Acute Assessment and plan: As seen on CTA, neoplasm likely increased from previous exams. Patient also has multiple nodules, liver mass and adrenal mass. Oncology following outpatient. (9) Metastatic adenocarcinoma Current Visit: Yes Status: Acute Assessment and plan: Oncology following outpatient (10) Generalized pain Current Visit: No Status: Acute Assessment and plan: Continue fentanyl patch, which is already applied. Sublingual oxycodone for breakthrough pain. (11) Anxiety Current Visit: No Status: Acute Assessment and plan: Titratable Precedex has needed (12) DVT prophylaxis Current Visit: No Status: Acute Assessment and plan: Subcutaneous heparin (13) Goals of care, counseling/discussion Current Visit: No Status: Acute Assessment and plan: Discussed with patient and [employer]ELOPER regarding CODE STATUS, and at this point they want full code including intubation if necessary. - Time Spent With Patient Total time spent is greater than 50% in coordination of care (as documented) at patient's floor/unit and/or counseling patient: Greater than 35 minutes
[2018-03-23 22:26] LABS: Hematocrit 25.3 % (37.5-50.1); Hemoglobin 8.1 g/dL (12.9-16.9); Mean Corpuscular Hemoglobin 30.8 pg (28.0-33.3); Mean Corpuscular Volume 96.2 fL (83.0-100.0); Mean Platelet Volume 11.7 fL (9.4-12.4); Nucleated Red Blood Cells 4.1 /100 WBC (0); Platelet Count 127 K/mcL (140-400); Red Blood Count 2.63 M/mcL (4.19-5.50); Red Cell Distribution Width 21.4 % (11.5-14.5)
[2018-03-23 22:44] LABS: Lymphocytes # 0.4 K/mcL (0.6-4.6); Monocytes # 0.5 K/mcL (0.0-1.3); Neutrophils # 5.5 K/mcL (1.6-8.9)
[2018-03-23 22:45] LABS: Anisocytosis 2+ (Not Present); Platelet Estimate Slight Decrease (Normal); Polychromasia 1+ (Not Present)
[2018-03-23] MEDS: Ipratropium/Albuterol Neb 3 ML IH SCH (22:52)
[2018-03-23] MEDS: Piperacillin/Tazobactam 3.375 GM in 0.9 % Sodium Chloride Mini Bag 100 ML IVPB SCH (22:55)
[2018-03-23] MEDS: MethylPREDNISolone 40 MG/ML VIAL IVP SCH (22:55)
[2018-03-23] MEDS: Cefepime HCl 2,000 MG in Water for inj. (sterile) 20 ML 20 ML IVP SCH (22:55)
[2018-03-24] MEDS ORDERED: Albuterol 2.5 MG/3 ML NEBULIZER IH SCH
[2018-03-24] MEDS ORDERED: OXYCODONE Oral CONC 10 MG/0.5 ML ORAL.SYG SL PRN ×2 (04:21)
[2018-03-24 04:36] LABS: Hematocrit 23.5 % (37.5-50.1); Hemoglobin 7.4 g/dL (12.9-16.9); Mean Corpuscular HGB Conc 31.5 g/dL (31.6-35.5); Mean Corpuscular Hemoglobin 30.6 pg (28.0-33.3); Mean Corpuscular Volume 97.1 fL (83.0-100.0); Mean Platelet Volume 11.8 fL (9.4-12.4); Nucleated Red Blood Cells 4.1 /100 WBC (0); Platelet Count 126 K/mcL (140-400); Red Blood Count 2.42 M/mcL (4.19-5.50); Red Cell Distribution Width 21.5 % (11.5-14.5)
[2018-03-24 04:57] LABS: Alanine Aminotransferase 172 Units/L (7-52); Albumin 3.1 g/dL (3.5-5.7); Albumin/Globulin Ratio 1.3 (1.1-2.2); Alkaline Phosphatase 200 Units/L (34-104); Aspartate Amino Transferase 268 Units/L (13-39); BUN/Creatinine Ratio 34 (6-26); Bilirubin,Total 1.6 mg/dL (0.3-1.0); Blood Urea Nitrogen 22 mg/dL (6-20); Calcium 8.8 mg/dL (8.6-10.3); Carbon Dioxide 26 mEq/L (23-29); Chloride 103 mEq/L (98-107); Globulin 2.3 g/dL (2.4-3.5); Glucose 132 mg/dL (70-105); Osmolality,Calculated 287 (280-300); Potassium 4.4 mEq/L (3.5-5.1); Sodium 136 mEq/L (136-145); Total Protein 5.4 g/dL (6.4-8.9); eGFR For Non-African Americans > 60 (> 60)
[2018-03-24] MEDS: Ipratropium/Albuterol Neb 3 ML IH SCH ×4 (05:00→22:15)
[2018-03-24 05:30] LABS: Anisocytosis 1+ (Not Present); Lymphocytes # 0.6 K/mcL (0.6-4.6); Monocytes # 0.5 K/mcL (0.0-1.3); Neutrophils # 6.6 K/mcL (1.6-8.9); Platelet Estimate Normal (Normal); Polychromasia 1+ (Not Present)
[2018-03-24] MEDS: MethylPREDNISolone 40 MG/ML VIAL IVP SCH ×4 (05:51→23:36)
[2018-03-24] MEDS: *HR* Heparin 5,000 UNIT/ML VIAL SQ SCH ×2 (05:51→18:32)
[2018-03-24] MEDS: Dexmedetomidine HCl 400 MCG/100 ML MLS IVC SCH ×3 (05:52→23:37)
[2018-03-24 06:45] LABS: Acinetobacter baumannii by PCR Not Detected (Not Detect); Candida albicans by PCR Not Detected (Not Detect); Candida glabrata by PCR Not Detected (Not Detect); Candida krusei by PCR Not Detected (Not Detect); Candida parapsilosis by PCR Not Detected (Not Detect); Candida tropicalis by PCR Not Detected (Not Detect); Enterobacter cloacae Cmplx PCR Not Detected (Not Detect); Enterobacteriaceae by PCR Not Detected (Not Detect); Enterococcus by PCR Not Detected (Not Detect); Escherichia coli by PCR Not Detected (Not Detect); Klebsiella oxytoca by PCR Not Detected (Not Detect); Klebsiella pneumoniae by PCR Not Detected (Not Detect); Proteus by PCR Not Detected (Not Detect); Pseudomonas aeruginosa by PCR Not Detected (Not Detect); Serratia marcescens by PCR Not Detected (Not Detect); Staphylococcus aureus by PCR Not Detected (Not Detect); Staphylococcus by PCR Not Detected (Not Detect); Streptococcus agalactiae(B)PCR Not Detected (Not Detect); Streptococcus by PCR DETECTED (Not Detect); Streptococcus pyogenes (A) PCR Not Detected (Not Detect)
[2018-03-24 06:46] LABS: Streptococcus pneumoniae PCR DETECTED (Not Detect)
[2018-03-24] MEDS ORDERED: Insulin LISPRO 300 UNITS/3 ML VIAL SQ SCH ×2 (07:30→21:00)
--- NOTE | 2018-03-24 08:20 | Internal Med Progress Note ---
<Richie Kerr - Last Filed: 03/24/18 11:59> Hospitalist Progress Note - Encounter Date of Encounter: 03/24/18 Time of Encounter: 08:30 - Subjective Interval History: 52-year-old male evaluated at bedside. He was sitting up in bed and eating his breakfast. He denies nausea, vomiting, diarrhea, fevers, chills. He does reports shortness. He denies any chest pain. He states that he currently is not in any pain. - Exam Vitals: Temp Pulse Resp BP Pulse Ox 97.3 F L 96 16 81/56 85 03/24/18 07:52 03/24/18 06:00 03/24/18 06:00 03/24/18 06:00 03/24/18 08:05 Exam: Gen.: alert and oriented x3. Appears to be insignificant respiratory distress. Appears to be very emaciated. CV: regular rate and rhythm, no murmurs, rubs, gallops. No edema present. lungs: course breath sounds throughout, diffuse rales and rhoncherous breath sounds. Abdomen: firm, mildly distended. non tender to palpation. bowel sounds present. extremities: no cyanosis or edema appreciated. - Assessment and Plan (1) Acute respiratory failure with hypoxia Current Visit: No Status: Resolved Assessment and Plan: 52-year-old male with history of metastatic lung cancer presented with increasing shortness of breath. on presentation, he had tachycardia, tachypnea, hypotension source of infection likely HCAP. Chest CTA showed right [place] infiltrate of mass encasing the right pulmonary artery, right pulmonary veins and right mainstem bronchus. There is also mediastinal lymphadenopathy, scattered lung nodules, liver metastasis, bilateral or juvenile metastasis, pathologic fracture at T3, prominence of the pulmonary artery. there were increased areas of consolidation at the lung bases. Lactic acid initially 7.6, no decreased to 2.7. RIP positive for strep pneumoniae. Blood culture 03/23 12 positive for gram positive cocci. Plan: repeat blood cultures vancomycin, Zosyn, Cefepime day 2 scheduled DuoNebs solumedrol. Patient is currently hypotensive but is alert and conversing well. Continue to monitor for now, as there is concern for fluid overload his current respiratory status. (2) Sepsis Current Visit: Yes Status: Acute Assessment and Plan: Plan as above (3) HCAP (healthcare-associated pneumonia) Current Visit: Yes Status: Acute Assessment and Plan: Plan as above (4) Anemia Current Visit: No Status: Chronic Assessment and Plan: Chronic. Continue to monitor (5) COPD with exacerbation Current Visit: No Status: Acute Assessment and Plan: Plan as above (6) Hyponatremia Current Visit: No Status: Resolved (7) Metastatic adenocarcinoma Current Visit: Yes Status: Acute Assessment and Plan: History of stage IV carcinoma with primary cancer in the lungs. He has metastasis to the brain, bone, liver, right adrenal gland. He has received whole brain radiotherapy, thoracic radiotherapy, complete left femur radiotherapy. (8) Lung mass Current Visit: No Status: Acute Assessment and Plan: Chest CTA showed right [place] infiltrate of mass encasing the right pulmonary artery, right pulmonary veins and right mainstem bronchus. There is also mediastinal lymphadenopathy, scattered lung nodules, liver metastasis, bilateral or juvenile metastasis, pathologic fracture at T3, prominence of the pulmonary artery. (9) Generalized pain Current Visit: No Status: Acute Assessment and Plan: continue current fentanyl patch. PRN oxycodone for severe pain. patient states that his pain is currently well controlled. (10) Anxiety Current Visit: No Status: Acute Assessment and Plan: continue with PRN titratable precedex. (11) Goals of care, counseling/discussion Current Visit: No Status: Acute Assessment and Plan: Discussed with [employer]. [place]. He had extensive conversation this morning with patient's POA (brother). He explained to POA in detail about the patient's overall poor prognosis, and potential harms of CPR/intubation. Code status changed to DNRCCA. it was discussed that there will be no use of vasoppressors. short term intubation ok. will currently hold off on palliative care consult. (12) DVT prophylaxis Current Visit: No Status: Acute Assessment and Plan: Heparin SQ (13) Elevated troponin Current Visit: Yes Status: Acute Assessment and Plan: Likely demand ischemia and setting of increased oxygen requirement, metastatic lung cancer. - Time Spent with Patient Total time spent is greater than 50% in coordination of care (as documented) at patient's floor/unit and/or counseling patient: Internal Medicine: Result - Labs CBC & Chem 7: 03/24/18 10:25 03/24/18 04:14 Labs: Short CBC 03/23/18 03/23/1803/24/18 Range/Units 15:24 22:12 04:14 WBC 9.9 D 6.4 7.8 (4.3-11.1) K/mcL Hgb 8.2 L 8.1 L 7.4 L (12.9-16.9) g/dL Hct 25.6 L 25.3 L 23.5 L (37.5-50.1) % Plt Count 163 127 L 126 L (140-400) K/mcL Neutrophils # 9.7 H 5.5 6.6 (1.6-8.9) K/mcL BMP 03/23/18 03/24/18 15:24 04:14 Sodium 127 L 136 D Potassium 4.8 4.4 Chloride 89 L 103 Carbon Dioxide 21 L 26 BUN 26 H 22 H Creatinine 0.94 0.65 L Glucose 138 H 132 H Calcium 9.1 8.8 Cardiac Enzymes 03/23/18 03/23/18 03/24/18 Range/Units 15:24 22:12 04:14 Troponin I 0.07 H* 0.06 H* 0.04 H* (< 0.04) ng/mL Liver Function 03/23/18 03/24/18 Range/Units 15:24 04:14 Total Bilirubin 2.0 H 1.6 H (0.3-1.0) mg/dL Direct Bilirubin 0.7 H (0.0-0.2) mg/dL AST 294 H 268 H (13-39) Units/L ALT 175 H 172 H (7-52) Units/L Alkaline Phosphatase 253 H 200 H (34-104) Units/L Albumin 3.6 3.1 L (3.5-5.7) g/dL Urine 03/23/18 Range/Units 16:18 Urine Color Yellow (Yellow) Urine Clarity Clear (Clear) Urine pH 6.0 (5.0-8.0) pH Units Ur Specific [place] 1.012 (1.010-1.025) Urine Protein Negative (Neg-Trace) mg/dL Urine Glucose (UA) Normal (Normal) mg/dL - ABG Interpretation ABG results: ABG ABG pH 7.44 pH Units (7.32-7.45) 03/23/18 15:47 ABG pCO2 36 mmHg (35-45) 03/23/18 15:47 ABG pO2 81 mmHg (85-104) L 03/23/18 15:47 ABG O2 Saturation 96 % (95-98) 03/23/18 15:47 PT/INR, D-dimer PT 16.2 Seconds (9.4-12.1) H 03/23/18 15:24 - Impressions Impressions Chest X-Ray 03/23/18 15:24 IMPRESSION: Mediastinal and right hilar lymph node mass again evident. Interval development of right pleural effusion as well as left basilar airspace disease and diffuse right lung airspace disease, greatest within its base. Findings are suggestive of pneumonia. Given some prominence of interstitial markings, component of edema or lymphangitic spread of carcinoma could be considered. D/ / Eboni Gifford Cha, MD / Eboni Gifford Cha, MD Interpreting Provider: Eboni Gifford Cha, MD Chest CTA 03/23/18 15:25 IMPRESSION: No evidence of pulmonary embolism. Right hilar infiltrative mass, likely related to neoplasm, encasing the right pulmonary artery, right pulmonary veins and right mainstem bronchus, mildly increased in size since the prior study. Mediastinal lymphadenopathy, contiguous with the right hilar mass, likely related to metastatic disease. Interval volume loss with consolidation in the posterior right upper lobe, likely related to atelectasis, with underlying neoplasm and possible superimposed infection/inflammation. Scattered lung nodules, grossly stable, likely related to metastatic disease. Interval increased airspace consolidation at the bilateral lung bases, likely related to atelectasis and superimposed pneumonia. Liver metastasis, likely increased. Bilateral adrenal metastasis, right more than left. Acute to subacute pathologic fracture of the T6 with 70% height loss, progressed. Mild acute pathologic fracture at the superior endplate T3 with 10% height loss, new since the prior study. Mildly prominent main pulmonary artery size, likely related to mild pulmonary hypertension. D/ / Yan Santiago MD / Yan Santiago MD Interpreting Provider: Yan Santiago MD Consult Discharge Plan - Plan Referrals: NONE,PCP [Primary Care Provider] - <Samreen Carmen - Last Filed: 03/24/18 12:42> Hospitalist Progress Note - Encounter Date of Encounter: 03/24/18 - Exam Vitals: Temp Pulse Resp BP Pulse Ox 97.1 F L 87 18 84/62 99 03/24/18 11:00 03/24/18 11:00 03/24/18 11:00 03/24/18 11:00 03/24/18 11:00 - Assessment and Plan (1) Lung mass Current Visit: No Status: Acute (2) Anemia Current Visit: No Status: Chronic (3) Hyponatremia Current Visit: No Status: Resolved (4) Acute respiratory failure with hypoxia Current Visit: No Status: Resolved (5) DVT prophylaxis Current Visit: No Status: Acute (6) Goals of care, counseling/discussion Current Visit: No Status: Acute (7) Generalized pain Current Visit: No Status: Acute (8) Anxiety Current Visit: No Status: Acute (9) Metastatic adenocarcinoma Current Visit: Yes Status: Acute (10) COPD with exacerbation Current Visit: No Status: Acute (11) HCAP (healthcare-associated pneumonia) Current Visit: Yes Status: Acute (12) Sepsis Current Visit: Yes Status: Acute (13) Elevated troponin Current Visit: Yes Status: Acute - Time Spent with Patient Total time spent is greater than 50% in coordination of care (as documented) at patient's floor/unit and/or counseling patient: Internal Medicine: Result - Labs CBC & Chem 7: 03/24/18 10:25 03/24/18 04:14 Labs: Short CBC 03/23/18 03/23/18 03/24/18 Range/Units 15:24 22:12 04:14 WBC 9.9 D 6.4 7.8 (4.3-11.1) K/mcL Hgb 8.2 L 8.1 L 7.4 L (12.9-16.9) g/dL Hct 25.6 L 25.3 L 23.5 L (37.5-50.1) % Plt Count 163 127 L 126 L (140-400) K/mcL Neutrophils # 9.7 H 5.5 6.6 (1.6-8.9) K/mcL 03/24/18 Range/Units 10:25 WBC 9.0 (4.3-11.1) K/mcL Hgb 6.9 L (12.9-16.9) g/dL Hct 21.9 L (37.5-50.1) % Plt Count 100 L (140-400) K/mcL Neutrophils # (1.6-8.9) K/mcL BMP 03/23/18 03/24/18 15:24 04:14 Sodium 127 L 136 D Potassium 4.8 4.4 Chloride 89 L 103 Carbon Dioxide 21 L 26 BUN 26 H 22 H Creatinine 0.94 0.65 L Glucose 138 H 132 H Calcium 9.1 8.8 Cardiac Enzymes 03/23/18 03/23/18 03/24/18 Range/Units 15:24 22:12 04:14 Troponin I 0.07 H* 0.06 H* 0.04 H* (< 0.04) ng/mL Liver Function 03/23/18 03/24/18 Range/Units 15:24 04:14 Total Bilirubin 2.0 H 1.6 H (0.3-1.0) mg/dL Direct Bilirubin 0.7 H (0.0-0.2) mg/dL AST 294 H 268 H (13-39) Units/L ALT 175 H 172 H (7-52) Units/L Alkaline Phosphatase 253 H 200 H (34-104) Units/L Albumin 3.6 3.1 L (3.5-5.7) g/dL Urine 03/23/18 Range/Units 16:18 Urine Color Yellow (Yellow) Urine Clarity Clear (Clear) Urine pH 6.0 (5.0-8.0) pH Units Ur Specific [place] 1.012 (1.010-1.025) Urine Protein Negative (Neg-Trace) mg/dL Urine Glucose (UA) Normal (Normal) mg/dL - ABG Interpretation ABG results: ABG ABG pH 7.44 pH Units (7.32-7.45) 03/23/18 15:47 ABG pCO2 36 mmHg (35-45) 03/23/18 15:47 ABG pO2 81 mmHg (85-104) L 03/23/18 15:47 ABG O2 Saturation 96 % (95-98) 03/23/18 15:47 PT/INR, D-dimer PT 16.2 Seconds (9.4-12.1) H 03/23/18 15:24 - Impressions Impressions Chest X-Ray 03/23/18 15:24 IMPRESSION: Mediastinal and right hilar lymph node mass again evident. Interval development of right pleural effusion as well as left basilar airspace disease and diffuse right lung airspace disease, greatest within its base. Findings are suggestive of pneumonia. Given some prominence of interstitial markings, component of edema or lymphangitic spread of carcinoma could be considered. D/ / Eboni Gifford Cha, MD / Eboni Gifford Cha, MD Interpreting Provider: Eboni Gifford Cha, MD Chest CTA 03/23/18 15:25 IMPRESSION: No evidence of pulmonary embolism. Right hilar infiltrative mass, likely related to neoplasm, encasing the right pulmonary artery, right pulmonary veins and right mainstem bronchus, mildly increased in size since the prior study. Mediastinal lymphadenopathy, contiguous with the right hilar mass, likely related to metastatic disease. Interval volume loss with consolidation in the posterior right upper lobe, likely related to atelectasis, with underlying neoplasm and possible superimposed infection/inflammation. Scattered lung nodules, grossly stable, likely related to metastatic disease. Interval increased airspace consolidation at the bilateral lung bases, likely related to atelectasis and superimposed pneumonia. Liver metastasis, likely increased. Bilateral adrenal metastasis, right more than left. Acute to subacute pathologic fracture of the T6 with 70% height loss, progressed. Mild acute pathologic fracture at the superior endplate T3 with 10% height loss, new since the prior study. Mildly prominent main pulmonary artery size, likely related to mild pulmonary hypertension. D/ / Yan Santiago MD / Yan Santiago MD Interpreting Provider: Yan Santiago MD - Attending Attestation I examined this patient and my medical decision-making was reviewed with the Resident Physician Dr Garcia. I agree with the documented findings, disposition and treatment plan as described except to the extent set forth below. Mr Timmons has metastatic lung cancer with recent long hospitalization and re presented with acute on chronic hypoxic respiratory failure. He is found to have a further increased right hilar mass from last imaging that encases the right pulm artery veins and right main bronchusright upper lobe ne oplasm with possible superimposed infection and bilateral base consolidations possible pna, with worsened liver mets and noted T spine pathologic fractures one progressed and the other new since last imaging. Given his history with pulm team they were consulted and have spoken to patient and his brother whom is his poa. Decision made 03/24/18 to change code status to DNR CCA with short term intubation acceptable. He is in the icu on precedex for comfort from anxiety. His has BPs as low as 60s/50s and decision has been made to not use pressor support. Pt with family at bedside inclduing his daughter and brother. On oxy mask. denies pain but is having sob. Receiving breathing treatment. Pt left to have treatment and brother asked for me to speak in [place]. I was updated to the pt course of care last admit and concerns his brother had regarding his care. He would like to have this communicated to the appropriate channels and declines a desire to have someone come speak to him. i am happy to reach out to my education program manager and this is acceptable plan to pt brother. He is aware his brother is dying and wants him to be comfortable and calm as possible. He is happy with current rate of precedex. We ended our discussion so he could go be with his brother given how low his bps currently were. All questions answered and conversation was appropriate and pleasant. He has in hand pt fentanyl from home and would like it properly disposed of. He and I together handed over to pt RN who will take care of this. gen- alert, awake,appears stated age, cachectic eyes- pupils equal round cv- reg rate and rhythm, normal s1,s2, no murmurs appreciated, no le edema lungs- diminsihed throughout, + rhonchi, poor air movement, rapid shallow breathing with accessory muscle use, is able to converse, receiving neb treatment/oxymask neuro- AAOxperson, place, situation Acute on chronic resp failure Multifocal pna, organism uk at this time, hospitalization last week Metastatic lung cancer with extensive disease in lungs, progressed since last imaging, poor prognosis -oxymask currently, ok per pt/family/pulm discussion today for short term intubation if required -precedex gtt for comfort, dnr cca, prn opiates -vanc + cefepime + zosyn, nebs, iv steroids Severe Sepsis with Hypotension 2/2 multifocal pna and bacteremia -pna treatment as above -cont broad abx -repeat cxs pending, initial + gpc to date -family/pt have changed code status and do not desire pressor support, fluids as per pulm critical care team should be only given with albumin as he is high risk to overload and compromise resp status further, at this time with bps improved both teams have held on ivfs further (2l boluses in ed) given resp status -Pulm following in ICU Hyponatremia, appears acute but has had in past, likely given lung cancer- he is critically ill, is not desiring pressor support and received immediately in ED 2L boluses of NS- na was 127 and by this morning had corrected to 136 faster than preferred- given his current tenuous resp status and holding of further fluids at this time, cannot give d5w to slow correction right now, if he receives IVF in ICU it would be rec that they be d5W or half normal saline and this was discussed with pulm by our team, cont monitoring Acute on chronic anemia- baseline this month 8-9, drop since admit to now 7.4 this morning with recheck pending- is typed and screened, would transfuse if hgb <7 and family/pt permit, no active bleeding identified, no blood in ua, and no bowel movements, cont to monitor Elevated trop- peak at 0.07 and now down to 0.04- suspect demand ischemia in setting of severe sepsis, dneies sxs at this time further diagnoses and plan as documented by resident ___ <Richie Kerr - Last Filed: 03/24/18 11:59> (2) Sepsis Qualifiers: Sepsis type: sepsis due to unspecified organism Qualified Code(s): A41.9 - Sepsis, unspecified organism (4) Anemia Qualifiers: Anemia type: other cause Other causes of anemia: chronic disease, neoplastic Qualified Code(s): D63.0 - Anemia in neoplastic disease <Samreen Carmen - Last Filed: 03/24/18 12:42> (2) Anemia Qualifiers: Anemia type: other cause Other causes of anemia: chronic disease, neoplastic Qualified Code(s): D63.0 - Anemia in neoplastic disease (12) Sepsis Qualifiers: Sepsis type: sepsis due to unspecified organism Qualified Code(s): A41.9 - Sepsis, unspecified organism
[2018-03-24] MEDS: Cefepime HCl 2,000 MG in Water for inj. (sterile) 20 ML 20 ML IVP SCH ×3 (08:24→23:36)
[2018-03-24] MEDS: Piperacillin/Tazobactam 3.375 GM in 0.9 % Sodium Chloride Mini Bag 100 ML IVPB SCH ×3 (08:26→23:36)
[2018-03-24] MEDS ORDERED: *HR* FentaNYL PATCH 25 MCG PATCH TD SCH (08:45)
--- NOTE | 2018-03-24 09:26 | Pulmonology Consult Note ---
<Naye Jimenez - Last Filed: 03/24/18 14:20> Date of Encounter: 03/24/18 Time of Encounter: 10:20 Assessment and Plan (1) Acute respiratory failure with hypoxia Current Visit: No Status: Acute Secondary to worsening lung cancer and possible superimposed pneumonia. Oxymask. BiPAP as needed. Short-term intubation, if necessary. Continue broad spectrum antibiotics. Continue breathing treatments and steroids. (2) Severe sepsis Current Visit: Yes Status: Acute Source: pneumonia. Causative organism: likely Strep pneumoniae PCR shows positive Strep pneumoniae Blood cultures drawn 03/23 x2 sets shows gram positive cocci. Blood cultures drawn 03/24 x2 sets are NGTD. Received 2L NS in ED. Was hypotensive at 69/56. Now improved and stable at 92/60. Provide albumin in 1/2NS for hypotension, if necessary. Continue broad spectrum antibiotics. (3) HCAP (healthcare-associated pneumonia) Current Visit: Yes Status: Acute CXR shows pneumonia CTA chest shows consolidation in RUL with underlying neoplasm and possible superimposed infection. Increased consolidation in lung bases, likely superimposed pneumonia. Continue day 1 of broad spectrum vanc, zosyn, and cefepime. (4) COPD with exacerbation Current Visit: No Status: Acute History of COPD. Continue DuoNeb. Continue day 1 of Solumedrol 40 q6h. (5) Anemia Current Visit: No Status: Chronic History of anemia. Baseline 8-9. This morning, Hb of 7.8. On recheck, Hb of 6.9. Will provide 1 unit pRBC. Provide Lasix 20 IV once after transfusion Recheck Hb after transfusion. Continue to monitor. 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 Received radiation. Qualifiers: Laterality: right Qualified Code(s): C34.91 - Malignant neoplasm of unspecified part of right bronchus or lung (7) Generalized pain Current Visit: No Status: Acute Patient reports pain level of 4. POA requests pain med drip to keep patient comfortable. Start fentanyl drip for pain. (8) Anxiety Current Visit: No Status: Acute Precedex prn. History of Present Illness Consult date: 03/24/18 History of present illness: 52 year old male with history of lung cancer with widespread metastasis, COPD, and diabetes. Patient was recently hospitalized. Presented again for respiratory failure. CTA chest shows worsening cancer with possible superimposed pneumonia. Patient seen and examined. Patient is resting comfortably in bed with oxymask. Patient states he feels fine. Denies any complaints. Patients POA (his brother) changed code status from full to DNR-CCA. Past Med Surg Social Fam HX - Past Medical History Medical history: COPD Additional medical history: lung cancer w/brain mets Psychiatric history: no psych history - Past Surgical History Surgical History: no surgical history - Social History Smoking Status: Current every day smoker Smokeless Tobacco Status: No Alcohol use: none Drug use: none - Family History Father Hx Family Respiratory Disorders: Yes (COPD) Medications and Allergies Alcohol Antiseptic Pads [Alcohol Pads] 1 each TP ACHS #100 med..pad 03/18/18 [Rx] Blood Sugar Diagnostic [Blood Glucose Test Strip] 1 each MC ACHS #100 strip 03/18/18 [Rx] Blood-Glucose Meter [Blood Glucose Monitoring] 1 each MC ACHS #1 each 03/18/18 [Rx] Dextrose [Glucose] 4 gm PO PRN PRN #10 tab.chew 03/18/18 [Rx] Fluticasone/Umeclidin/Vilanter [Trelegy Ellipta 100-62.5-25] 1 each IH DAILY 30 Days #1 blst.w.dev 03/18/18 [Rx] Insulin LISPRO [Humalog Kwikpen U-100] 0 unit SQ ACHS #5 mls 03/18/18 [Rx] RX: Albuterol Sulfate [Albuterol Inhaler] 1 - 2 puff IH Q4HR PRN 30 Days #1 hfa.aer.ad 03/18/18 [Rx] RX: Bisacodyl [Dulcolax] 10 mg RC DAILY PRN #30 supp.rect 03/18/18 [Rx] RX: DiphenhydraMINE [Benadryl] 25 mg PO Q8HR PRN #10 capsule 03/18/18 [Rx] RX: FentaNYL PATCH [Duragesic] 25 mcg TD Q72H 9 Days #3 patch.td72 03/18/18 [Rx] RX: Fluconazole [Diflucan] 100 mg PO DAILY #7 tablet 03/18/18 [Rx] RX: Ipratropium/Albuterol Neb [Duoneb] 3 ml IH Q4HWA PRN 30 Days inhsol 03/18/18 [Rx] RX: Lancets 1 each MC ACHS #100 each 03/18/18 [Rx] RX: Mag Hydrox/Al Hydrox/Simeth [Maalox] 30 ml PO Q4H PRN #30 udc 03/18/18 [Rx] RX: Melatonin 3 mg PO HS PRN #10 tablet 03/18/18 [Rx] RX: Nebulizer and Compressor [Ombra Compressor System] 1 each MC Q4H PRN #1 each 03/18/18 [Rx] RX: Omeprazole [PriLOSEC] 40 mg PO DAILY@0730 #30 capsule.dr 03/18/18 [Rx] RX: Polyethylene Glycol 3350 [MiraLAX] 17 gm PO DAILY #30 powd.pack 03/18/18 [Rx] RX: Sennosides/Docusate Sodium [Senna Plus] 1 each PO BID #60 tablet 03/18/18 [Rx] RX: Stomatitis Mixture 5 ml PO QIDAC 30 Days mls 03/18/18 [Rx] RX: levETIRAcetam [Keppra] 500 mg PO Q12HR 30 Days #60 tablet 03/18/18 [Rx] LORazepam [Ativan] 0.5 mg PO TID PRN 7 Days #28 tablet 03/19/18 [Rx] RX: Dexamethasone [Decadron] 4 mg PO BID 21 Days #25 tab 03/19/18 [Rx] RX: OxyCODONE Immed Rel [Roxicodone 10 MG] 10 mg PO Q4H PRN 7 Days #42 tab 03/19/18 [Rx] Allergy/AdvReac Type Severity Reaction Status Date / Time No Known Allergies Allergy Verified 03/23/18 15:26 All Systems: The remainder of the systems were reviewed and are negative - Constitutional Constitutional: no anorexia, no chills - EENT Eyes: no loss of peripheral vision Ears: no decreased hearing Nose, mouth and throat: no disequilibrium - Cardiovascular Cardiovascular: no chest pain, no diaphoresis - Respiratory Respiratory: dyspnea, no wheezing - Gastrointestinal Gastrointestinal: no abdominal pain, no diarrhea - Genitourinary Genitourinary: no change in libido, no dysuria - Musculoskeletal Musculoskeletal: no joint pain, no muscle weakness - Integumentary Integumentary: no erythema, no rash - Neurological Neurological: no abnormal speech, no confusion - Endocrine Endocrine: no cold intolerance, no deeping of the voice - Hematologic/Lymphatic Hematologic/Lymphatic: no easy bleeding, no lymphadenopathy - Allergic/Immunologic Allergic/Immunologic: no tongue swelling, no itchy eyes Physical Examination Vital Signs: Vital Signs, Last 4 Hours Temp Pulse Resp BP Pulse Ox 03/24/18 08:05 85 03/24/18 08:00 93 14 95/68 95 03/24/18 07:52 97.3 F L 03/24/18 07:00 91 14 88/73 95 03/24/18 06:00 96 16 81/56 96 Gen: Vitals noted. Patient is on oxymask. Eyes: anicteric sclerae, moist conjunctivae; no lid-lag; Pupils equal and reactive to light HENT: Atraumatic Neck: Trachea midline; supple Cardiac: RRR, no murmur, +S1/S2 Pulmonary: Good air flow. Diffuse inspiratory and expiratory wheezing in right lung. Diffuse expiratory crackles bilaterally, worst in right lung base. Labored breathing. Abdomen: normal bowel sounds. Soft, nontender, no guarding. No masses or hepatosplenomegaly Extremities: No edema, nontender calf, no cyanosis or clubbing Skin: Normal temperature, turgor and texture; no rash, ulcers or subcutaneous nodules. Diffuse ecchymosis noted on patients arms from previous lab draws Neuro: moves all extremities, no focal deficit Psych: appropriate mood and behavior. Alert and responsive. Results - Laboratory Findings CBC and BMP: 03/24/18 10:25 03/24/18 04:14 ABG ABG pH 7.44 pH Units (7.32-7.45) 03/23/18 15:47 ABG pCO2 36 mmHg (35-45) 03/23/18 15:47 ABG pO2 81 mmHg (85-104) L 03/23/18 15:47 ABG O2 Saturation 96 % (95-98) 03/23/18 15:47 PT/INR, D-dimer PT 16.2 Seconds (9.4-12.1) H 03/23/18 15:24 Abnormal lab findings: Abnormal lab results RBC 2.42 M/mcL (4.19-5.50) L 03/24/18 04:14 Hgb 7.4 g/dL (12.9-16.9) L 03/24/18 04:14 Hct 23.5 % (37.5-50.1) L 03/24/18 04:14 MCHC 31.5 g/dL (31.6-35.5) L 03/24/18 04:14 RDW 21.5 % (11.5-14.5) H 03/24/18 04:14 Plt Count 126 K/mcL (140-400) L 03/24/18 04:14 Band Neutrophils % 10.0 % (0-4) H 03/24/18 04:14 Metamyelocytes % 2.0 % (0) H 03/24/18 04:14 Nucleated RBCs/100 WBC 4.1 /100 WBC (0) H 03/24/18 04:14 Polychromasia 1+ (Not Present) A 03/24/18 04:14 Anisocytosis 1+ (Not Present) A 03/24/18 04:14 PT 16.2 Seconds (9.4-12.1) H 03/23/18 15:24 ABG pO2 81 mmHg (85-104) L 03/23/18 15:47 BUN 22 mg/dL (6-20) H 03/24/18 04:14 Creatinine 0.65 mg/dL (0.70-1.30) L 03/24/18 04:14 BUN/Creatinine Ratio 34 (6-26) H 03/24/18 04:14 Glucose 132 mg/dL (70-105) H 03/24/18 04:14 POC Glucose 140 mg/dL (70-99) H 03/23/18 20:37 Lactic Acid 2.7 mmol/L (0.5-2.2) H 03/24/18 04:14 Total Bilirubin 1.6 mg/dL (0.3-1.0) H 03/24/18 04:14 Direct Bilirubin 0.7 mg/dL (0.0-0.2) H 03/23/18 15:24 Indirect Bilirubin 1.3 mg/dL (0.0-1.2) H 03/23/18 15:24 AST 268 Units/L (13-39) H 03/24/18 04:14 ALT 172 Units/L (7-52) H 03/24/18 04:14 Alkaline Phosphatase 200 Units/L (34-104) H 03/24/18 04:14 Troponin I 0.04 ng/mL (< 0.04) H* 03/24/18 04:14 Serum Total Protein 5.4 g/dL (6.4-8.9) L 03/24/18 04:14 Albumin 3.1 g/dL (3.5-5.7) L 03/24/18 04:14 Globulin 2.3 g/dL (2.4-3.5) L 03/24/18 04:14 Streptococcus sp PCR DETECTED (Not Detect) A 03/23/18 15:36 Strep pneumoniae (PCR) DETECTED (Not Detect) A 03/23/18 15:36 - Microbiology Findings Microbiology Findings: Microbiology, Last 48 Hours 03/23/18 15:36 Blood Culture - Preliminary Peripheral Venipuncture Gram Positive Cocci 03/23/18 15:33 Blood Culture - Preliminary Peripheral Venipuncture Culture is incubating and being continuously monitored for growth. Final report to follow. - Clinical Findings Intake & Output: Intake & Output 03/23/18 03/24/18 03/24/18 23:59 07:59 15:59 Intake Total 1390 / 1390 700 / 700 Output Total 1200 / 1200 1275 / 1275 Balance 190 / 190 -575 / -575 Weight 56.7 kg 56.7 kg Consult Discharge Plan - Plan Referrals: NONE,PCP [Primary Care Provider] - <Heidy Washington - Last Filed: 03/24/18 18:25> Date of Encounter: 03/24/18 All Systems: The remainder of the systems were reviewed and are negative Physical Examination Vital Signs: Vital Signs, Last 4 Hours Temp Pulse Resp BP Pulse Ox 03/24/18 08:05 85 03/24/18 08:00 93 14 95/68 95 03/24/18 07:52 97.3 F L 03/24/18 07:00 91 14 88/73 95 03/24/18 06:00 96 16 81/56 96 Results - Laboratory Findings CBC and BMP: 03/24/18 10:25 03/24/18 04:14 ABG ABG pH 7.44 pH Units (7.32-7.45) 03/23/18 15:47 ABG pCO2 36 mmHg (35-45) 03/23/18 15:47 ABG pO2 81 mmHg (85-104) L 03/23/18 15:47 ABG O2 Saturation 96 % (95-98) 03/23/18 15:47 PT/INR, D-dimer PT 16.2 Seconds (9.4-12.1) H 03/23/18 15:24 Abnormal lab findings: Abnormal lab results RBC 2.42 M/mcL (4.19-5.50) L 03/24/18 04:14 Hgb 7.4 g/dL (12.9-16.9) L 03/24/18 04:14 Hct 23.5 % (37.5-50.1) L 03/24/18 04:14 MCHC 31.5 g/dL (31.6-35.5) L 03/24/18 04:14 RDW 21.5 % (11.5-14.5) H 03/24/18 04:14 Plt Count 126 K/mcL (140-400) L 03/24/18 04:14 Band Neutrophils % 10.0 % (0-4) H 03/24/18 04:14 Metamyelocytes % 2.0 % (0) H 03/24/18 04:14 Nucleated RBCs/100 WBC 4.1 /100 WBC (0) H 03/24/18 04:14 Polychromasia 1+ (Not Present) A 03/24/18 04:14 Anisocytosis 1+ (Not Present) A 03/24/18 04:14 PT 16.2 Seconds (9.4-12.1) H 03/23/18 15:24 ABG pO2 81 mmHg (85-104) L 03/23/18 15:47 BUN 22 mg/dL (6-20) H 03/24/18 04:14 Creatinine 0.65 mg/dL (0.70-1.30) L 03/24/18 04:14 BUN/Creatinine Ratio 34 (6-26) H 03/24/18 04:14 Glucose 132 mg/dL (70-105) H 03/24/18 04:14 POC Glucose 140 mg/dL (70-99) H 03/23/18 20:37 Lactic Acid 2.7 mmol/L (0.5-2.2) H 03/24/18 04:14 Total Bilirubin 1.6 mg/dL (0.3-1.0) H 03/24/18 04:14 Direct Bilirubin 0.7 mg/dL (0.0-0.2) H 03/23/18 15:24 Indirect Bilirubin 1.3 mg/dL (0.0-1.2) H 03/23/18 15:24 AST 268 Units/L (13-39) H 03/24/18 04:14 ALT 172 Units/L (7-52) H 03/24/18 04:14 Alkaline Phosphatase 200 Units/L (34-104) H 03/24/18 04:14 Troponin I 0.04 ng/mL (< 0.04) H* 03/24/18 04:14 Serum Total Protein 5.4 g/dL (6.4-8.9) L 03/24/18 04:14 Albumin 3.1 g/dL (3.5-5.7) L 03/24/18 04:14 Globulin 2.3 g/dL (2.4-3.5) L 03/24/18 04:14 Streptococcus sp PCR DETECTED (Not Detect) A 03/23/18 15:36 Strep pneumoniae (PCR) DETECTED (Not Detect) A 03/23/18 15:36 - Microbiology Findings Microbiology Findings: Microbiology, Last 48 Hours 03/23/18 15:36 Blood Culture - Preliminary Peripheral Venipuncture Gram Positive Cocci 03/23/18 15:33 Blood Culture - Preliminary Peripheral Venipuncture Culture is incubating and being continuously monitored for growth. Final report to follow. - Clinical Findings Intake & Output: Intake & Output 03/23/18 03/24/18 03/24/18 23:59 07:59 15:59 Intake Total 1390 / 1390 700 / 700 Output Total 1200 / 1200 1275 / 1275 Balance 190 / 190 -575 / -575 Weight 56.7 kg 56.7 kg - Attending Attestation I examined this patient and my medical decision-making was reviewed with the Resident Physician. I agree with the documented findings, disposition and treatment plan as described except to the extent set forth below. Patient seen and examined. Labs, radiology, chart personally reviewed. Agree with resident's history and physical, assessment, plan with following comments: WOOL GROWER: Patient follows commands, Patient is nervous and he is on Precedex and he is in pain, will add Fentanyl drip for comfort. Pulmonary: Patient is in respiratory distress and I had long discussion with his power of [place] attorney who is his brother and a goal is to keep him comfortable as much as possible and his CODE STATUS was changed. Patient wants to eat and he understand and also his power of [place] attorney understand if he does not tolerate noninvasive ventilation he will need to be intubated and the result was risk of vomiting and aspiration. Patient will be on broad-spectrum antibiotic and I have reviewed CT chest with the power of [place] attorney which shows evidence of worsening which I believe primarily tumor, however infection and also less likely radiation pneumonitis in the differential diagnosis. Continue broad- spectrum antibiotic and systemic steroid. Unfortunately prognosis is very poor. Patient blood pressure is in the low side and because of his respiratory distress and acute hypoxic respiratory failure will manage with Albumin and gen tle hydration, I feel excessive fluid will put him in more distress and discomfort. Palliative care to evaluate patient. Oncology input will be important. Infectious disease consultation can be consider. This is discussed with primary team and thank you very much for consultation.
[2018-03-24 10:35] LABS: Hematocrit 21.9 % (37.5-50.1); Hemoglobin 6.9 g/dL (12.9-16.9); Mean Corpuscular HGB Conc 31.5 g/dL (31.6-35.5); Mean Corpuscular Hemoglobin 31.1 pg (28.0-33.3); Mean Corpuscular Volume 98.6 fL (83.0-100.0); Mean Platelet Volume 10.9 fL (9.4-12.4); Platelet Count 100 K/mcL (140-400); Red Blood Count 2.22 M/mcL (4.19-5.50); Red Cell Distribution Width 21.6 % (11.5-14.5)
[2018-03-24] MEDS ORDERED: FentaNYL (PF) 1,000 MCG in 0.9 % Sodium Chloride 80 ML IVC SCH (13:15)
[2018-03-24] MEDS ORDERED: 0.9 % Sodium Chloride 250 ML ONE (13:24)
[2018-03-24] MEDS ORDERED: 0.9 % Sodium Chloride 1,000 ML ONE (16:47)
[2018-03-24] MEDS ORDERED: Furosemide 20 MG/2 ML VIAL IVP ONE (17:00)
--- NOTE | 2018-03-24 19:01 | Event Note ---
Date of Encounter: 03/24/18 Time of Encounter: 18:50 After discussion with nurse, patients CHAPARRO (brother) decided to change code st atus to DNR-CC. Brother confirms that he doesnt want intubation or CPR. States he wants patient to be as comfortable as possible in his last days. Will consult Palliative. Will cancel all lab draws. Patient is already on fentanyl drip for pain and precedex drip for anxiety. Continue antibiotics for now, will defer decision to stop antibiotics to Palliative Care.
[2018-03-25] MEDS: Ipratropium/Albuterol Neb 3 ML IH SCH ×2 (04:14→10:05)
[2018-03-25] MEDS: *HR* Heparin 5,000 UNIT/ML VIAL SQ SCH (06:19)
[2018-03-25] MEDS ORDERED: *HR* LORazepam 2 MG/ML VIAL IVP PRN ×2 (07:45→14:38)
[2018-03-25] MEDS ORDERED: Docusate Oral Soln 100 MG/10 ML UDC PO SCH (09:00)
--- NOTE | 2018-03-25 09:55 | Palliative - Consult Note ---
Date of Encounter: 03/25/18 Time of Encounter: 09:49 - Assessment and Plan (1) Dyspnea Current Visit: Yes Status: Acute Assessment and plan: Pt is Tachypneic, appears in mild distress due to SB. on 15 L oxymask, sat 94%. Continue oxygen On fentanyl drip, will titrate to comfort. Qualifiers: Dyspnea type: acute respiratory distress Qualified Code(s): R06.03 - Acute respiratory distress (2) Goals of care, counseling/discussion Current Visit: No Status: Acute Assessment and plan: Met with pt's brother Pancho, pt was unable to participate in the discussion. Pancho stated at his point, he has come to acceptance with he fact that pt is in terminal phase, and would like to de-escalate care, and focus on comfort measures. He states pt is very anxious about dying, and is asking for him to be medicated better as far as existential suffering. Discussed with cutter and edge trimmer Kathy yao. Pancho is agreeable for pt to be transferred to palliative care bed, for Counts include 234 beds at the [facility] hospice referral made. Pancho's father and father in law both in the last few months due to advanced cancer, Pancho is at risk of complicated grief. (3) Generalized pain Current Visit: No Status: Acute Assessment and plan: will continue fentanyl drip, now 50mcg/hr, with fentanyl 25 mcg IVP for breathrough pain. (4) Anxiety Current Visit: No Status: Acute Assessment and plan: Pt is on Ativan 2 mg q2hrs prn for anxiety. Upon transfer will continue. may change to a scheduled dose according to need. (5) Metastatic primary lung cancer Current Visit: No Status: Acute Assessment and plan: S/p whole brain radiation, radiation to the thorax and femur. no further cancer treatment. Qualifiers: Laterality: right Qualified Code(s): C34.91 - Malignant neoplasm of unspecified part of right bronchus or lung (6) Severe sepsis Current Visit: Yes Status: Acute Assessment and plan: Pt labs were positive for strep pneumonia. Discussed with Pancho, will change ABX to Rocephin 2g q24hrs, one dose today, will evaluate daily for the need to continue. (7) Hospice care Current Visit: Yes Status: Acute Assessment and plan: Discontinue all blood works and IVF Secretions: Scopolamine patch Diet as tolerated Constipation: senna BID Palliative-CN HPI - Data of Consult Patient: known to practice within the last 3 years Consult date: 03/25/18 Requesting Physician: Sj Borja MD Primary Care Provider: PCP NONE - Consult Narrative Palliative Care/Comfort Measures: Palliative care Reason for consult: hospice evaluation History of present illness: Mr. Timmons is a 52 year old male that was recently diagnosed with lung cancer, with mets to adrenals, liver, bones, brain, on radiation therapy, presented with SOB. CTA showed increased lung mass, infiltrate vs radiation pneumonitis, pleural effusion. Strep pneumonia +, anemia and hypotension. Pt was admitted to MICU. Pt's brother Jacques is the MPOA, at first wanted all interventions, then successively decided for DNRCC and comfort care. Palliative care consult for hospice evaluation. At the time of exam, pt was drowsy, arousable. was alert to person and place, very weak and answering questions with a lot of effort. Complaining of headaches. Brother Pancho was present at the bedside. CC: Sj Borja MD - Time Spent with Patient Time: Total time spent is greater than 50% in coordination of care (as documented) at patient's floor/unit and/or counseling patient: Time with patient: 75 minutes Past Med Surg Social Fam HX - Past Medical History Medical history: COPD Additional medical history: lung cancer w/brain mets Psychiatric history: no psych history - Past Surgical History Surgical History: no surgical history - Social History Smoking Status: Current every day smoker Smokeless Tobacco Status: No Alcohol use: none Drug use: none - Family History Father Hx Family Respiratory Disorders: Yes (COPD) Medications and Allergies Albuterol Sulfate [Albuterol Inhaler] 1 - 2 puff IH Q4HR PRN 30 Days #1 hfa.aer.ad 03/18/18 [Rx] Alcohol Antiseptic Pads [Alcohol Pads] 1 each TP ACHS #100 med..pad 03/18/18 [Rx] Bisacodyl [Dulcolax] 10 mg RC DAILY PRN #30 supp.rect 03/18/18 [Rx] Blood Sugar Diagnostic [Blood Glucose Test Strip] 1 each MC ACHS #100 strip 03/18/18 [Rx] Blood-Glucose Meter [Blood Glucose Monitoring] 1 each ACHS #1 each 03/18/18 [Rx] Dextrose [Glucose] 4 gm PO PRN PRN #10 tab.chew 03/18/18 [Rx] DiphenhydraMINE [Benadryl] 25 mg PO Q8HR PRN #10 capsule 03/18/18 [Rx] FentaNYL PATCH [Duragesic] 25 mcg TD Q72H 9 Days #3 patch.td72 03/18/18 [Rx] Fluconazole [Diflucan] 100 mg PO DAILY #7 tablet 03/18/18 [Rx] Fluticasone/Umeclidin/Vilanter [Trelegy Ellipta 100-62.5-25] 1 each IH DAILY 30 Days #1 blst.w.dev 03/18/18 [Rx] Insulin LISPRO [Humalog Kwikpen U-100] 0 unit SQ ACHS #5 mls 03/18/18 [Rx] Ipratropium/Albuterol Neb [Duoneb] 3 ml IH Q4HWA PRN 30 Days inhsol 03/18/18 [Rx] Lancets 1 each MC ACHS #100 each 03/18/18 [Rx] Mag Hydrox/Al Hydrox/Simeth [Maalox] 30 ml PO Q4H PRN #30 udc 03/18/18 [Rx] Melatonin 3 mg PO HS PRN #10 tablet 03/18/18 [Rx] Nebulizer and Compressor [Ombra Compressor System] 1 each MC Q4H PRN #1 each 03/18/18 [Rx] Omeprazole [PriLOSEC] 40 mg PO DAILY@0730 #30 capsule. 03/18/18 [Rx] Polyethylene Glycol 3350 [MiraLAX] 17 gm PO DAILY #30 powd.pack 03/18/18 [Rx] Sennosides/Docusate Sodium [Senna Plus] 1 each PO BID #60 tablet 03/18/18 [Rx] Stomatitis Mixture 5 ml PO QIDAC 30 Days mls 03/18/18 [Rx] levETIRAcetam [Keppra] 500 mg PO Q12HR 30 Days #60 tablet 03/18/18 [Rx] Dexamethasone [Decadron] 4 mg PO BID 21 Days #25 tab 03/19/18 [Rx] LORazepam [Ativan] 0.5 mg PO TID PRN 7 Days #28 tablet 03/19/18 [Rx] OxyCODONE Immed Rel [Roxicodone 10 MG] 10 mg PO Q4H PRN 7 Days #42 tab 03/19/18 [Rx] Allergy/AdvReac Type Severity Reaction Status Date / Time No Known Allergies Allergy Verified 03/23/18 15:26 Review of systems: patient was lethargic, limited review of system. - Constitutional Constitutional ROS PAL: lethargy, malaise - Respiratory Respiratory: dyspnea - Gastrointestinal Gastrointestinal: no abdominal pain - Musculoskeletal Musculoskeletal ROS IM: muscle weakness, no myalgias - Neurological Neurological ROS: confusion, headache(s) - Psychiatric Psychiatric general PM: anxiety Palliative Care-Exam - Constitutional Vitals: Temp Pulse Resp BP Pulse Ox 97.8 F 77 20 100/74 94 03/25/18 07:49 03/25/18 08:00 03/25/18 08:00 03/25/18 08:00 03/25/18 08:00 Exam: Gen: Vitals noted. Patient is on oxymask. Cachetic and sick looking Eyes: anicteric sclerae, moist conjunctivae; Pupils equal and reactive to light HENT: Atraumatic Neck: Trachea midline; supple Cardiac: RRR, no murmur, +S1/S2 Pulmonary: Good air flow. Diffuse inspiratory and expiratory wheezing in right lung. Diffuse expiratory crackles bilaterally, worst in right lung base. Labored breathing. Abdomen: normal bowel sounds. Soft, nontender, no guarding. No masses or hepatosplenomegaly Extremities: No edema, nontender calf, no cyanosis or clubbing Skin: Normal temperature, turgor and texture; no rash, ulcers or subcutaneous nodules. Diffuse ecchymosis noted on patients arms from previous lab draws Neuro: moves all extremities, no focal deficit Psych: anxiety Internal Medicine - CN: Reslt - Labs CBC & Chem 7: 03/24/18 10:25 03/24/18 04:14 Labs: Short CBC 03/24/18 Range/Units 10:25 WBC 9.0 (4.3-11.1) K/mcL Hgb 6.9 L (12.9-16.9) g/dL Hct 21.9 L (37.5-50.1) % Plt Count 100 L (140-400) K/mcL - ABG Interpretation ABG results: ABG ABG pH 7.44 pH Units (7.32-7.45) 03/23/18 15:47 ABG pCO2 36 mmHg (35-45) 03/23/18 15:47 ABG pO2 81 mmHg (85-104) L 03/23/18 15:47 ABG O2 Saturation 96 % (95-98) 03/23/18 15:47 PT/INR, D-dimer PT 16.2 Seconds (9.4-12.1) H 03/23/18 15:24 Consult Discharge Plan - Plan Referrals: NONE,PCP [Primary Care Provider] - Palliative Quality Palliative Quality: Screen for Code Status: Yes, Screen for Goals of Care: Yes, Screen for Pain: Yes, If Pain Regimen Started, Initiate Bowel Regimen: Yes, Screen for Nausea/Vomitting: Yes Code Status: 03/23/18 21:41 Resuscitation Status: Active [RES] Routine Comment: Resuscitation Status: Full Code 03/24/18 08:15 DNR [Resuscitation Status: Active] [RES] Routine Comment: Resuscitation Status: DNR-Comfort Care-Arrest 03/24/18 18:46 CODE [Resuscitation Status: Active] [RES] Routine Comment: Resuscitation Status: DNR-Comfort Care Palliative Scale - Palliative Performance Scale How ambulatory is this patient?: Mainly in bed What is patient's level of activity and evidence of disease?: Unable to do most activity, Extensive disease How much self-care assistance does patient require?: Mainly assistance How much oral intake does the patient have?: Minimal to sips What is this patient's level of consciousness?: Full or confusion Palliative Performance Score: 30 %
--- NOTE | 2018-03-25 09:56 | Pulmonology Progress Note ---
<Mami Valentine S - Last Filed: 03/25/18 15:27> Date of Encounter: 03/25/18 Objective PUL Vital signs: Last Vital Signs Temp 97.4 F L 03/25/18 14:23 Pulse 99 03/25/18 14:23 Resp 19 03/25/18 14:23 BP 100/72 03/25/18 14:23 Pulse Ox 96 03/25/18 14:52 Results - Laboratory Findings CBC and BMP: 03/24/18 10:25 03/24/18 04:14 ABG ABG pH 7.44 pH Units (7.32-7.45) 03/23/18 15:47 ABG pCO2 36 mmHg (35-45) 03/23/18 15:47 ABG pO2 81 mmHg (85-104) L 03/23/18 15:47 ABG O2 Saturation 96 % (95-98) 03/23/18 15:47 PT/INR, D-dimer PT 16.2 Seconds (9.4-12.1) H 03/23/18 15:24 Abnormal lab findings: Abnormal lab results RBC 2.22 M/mcL (4.19-5.50) L 03/24/18 10:25 Hgb 6.9 g/dL (12.9-16.9) L 03/24/18 10:25 Hct 21.9 % (37.5-50.1) L 03/24/18 10:25 MCHC 31.5 g/dL (31.6-35.5) L 03/24/18 10:25 RDW 21.6 % (11.5-14.5) H 03/24/18 10:25 Plt Count 100 K/mcL (140-400) L 03/24/18 10:25 Band Neutrophils % 10.0 % (0-4) H 03/24/18 04:14 Metamyelocytes % 2.0 % (0) H 03/24/18 04:14 Nucleated RBCs/100 WBC 4.1 /100 WBC (0) H 03/24/18 04:14 Polychromasia 1+ (Not Present) A 03/24/18 04:14 Anisocytosis 1+ (Not Present) A 03/24/18 04:14 PT 16.2 Seconds (9.4-12.1) H 03/23/18 15:24 ABG pO2 81 mmHg (85-104) L 03/23/18 15:47 BUN 22 mg/dL (6-20) H 03/24/18 04:14 Creatinine 0.65 mg/dL (0.70-1.30) L 03/24/18 04:14 BUN/Creatinine Ratio 34 (6-26) H 03/24/18 04:14 Glucose 132 mg/dL (70-105) H 03/24/18 04:14 POC Glucose 140 mg/dL (70-99) H 03/23/18 20:37 Lactic Acid 2.7 mmol/L (0.5-2.2) H 03/24/18 04:14 Total Bilirubin 1.6 mg/dL (0.3-1.0) H 03/24/18 04:14 Direct Bilirubin 0.7 mg/dL (0.0-0.2) H 03/23/18 15:24 Indirect Bilirubin 1.3 mg/dL (0.0-1.2) H 03/23/18 15:24 AST 268 Units/L (13-39) H 03/24/18 04:14 ALT 172 Units/L (7-52) H 03/24/18 04:14 Alkaline Phosphatase 200 Units/L (34-104) H 03/24/18 04:14 Troponin I 0.04 ng/mL (< 0.04) H* 03/24/18 04:14 Serum Total Protein 5.4 g/dL (6.4-8.9) L 03/24/18 04:14 Albumin 3.1 g/dL (3.5-5.7) L 03/24/18 04:14 Globulin 2.3 g/dL (2.4-3.5) L 03/24/18 04:14 Streptococcus sp PCR DETECTED (Not Detect) A 03/23/18 15:36 Strep pneumoniae (PCR) DETECTED (Not Detect) A 03/23/18 15:36 - Microbiology Findings Microbiology Findings: Microbiology, Last 48 Hours 03/23/18 15:33 Blood Culture - Preliminary Peripheral Venipuncture Streptococcus pneumoniae 03/23/18 15:36 Blood Culture - Preliminary Peripheral Venipuncture Streptococcus pneumoniae 03/24/18 09:16 Blood Culture - Preliminary Peripheral Venipuncture Culture is incubating and being continuously monitored for growth. Final report to follow. 03/24/18 09:16 Blood Culture - Preliminary Peripheral Venipuncture Culture is incubating and being continuously monitored for growth. Final report to follow. - Clinical Findings Intake & Output: Intake & Output 03/24/18 03/25/18 03/25/18 23:59 07:59 15:59 Intake Total 1274 / 1274 130 / 130 Output Total 1000 / 1000 500 / 500 1525 / 1525 Balance 274 / 274 -370 / -370 -1525 / -1525 Consult Discharge Plan - Plan Referrals: NONE,PCP [Primary Care Provider] - - Attending Attestation I saw and evaluated this patient and my medical decision-making was reviewed with the Resident Physician. I agree with the documented findings, disposition and treatment plan as described except to the extent set forth below. We independently had [id number] contact with the patient Patient seen and examined at bedside Labs, radiology, chart personally reviewed. Management was reviewed during multidisciplinary critical care rounds. DUMP ATTENDANT: Patient slightly sedated secondary to pain medication. Pulm: Hypoxic respiratory failure secondary to pneumonia and stage IV adenocarcinoma Cards: He is clinically stable FEN-GI: Patient is on comfort care measures only to have PO tolerated. Dispo: Should be transferred to hospice care under the palliative care service CODE:DNRCC <Marcela Baum - Last Filed: 03/25/18 17:40> Date of Encounter: 03/25/18 Time of Encounter: 08:30 Assessment and Plan (1) Acute respiratory failure with hypoxia Current Visit: No Status: Acute Secondary to worsening lung cancer and possible superimposed pneumonia. Plan: Discussed with palliative care, will transition to hospice general inpatient Oxymask Continue broad spectrum antibiotics Continue breathing treatments and steroids (2) Severe sepsis Current Visit: Yes Status: Acute Source: pneumonia. Causative organism: likely Strep pneumoniae PCR shows positive Strep pneumoniae Blood cultures drawn 03/23 x2 sets shows gram positive cocci. Blood cultures drawn 03/24 x2 sets are NGTD. Received 2L NS in ED, was hypotensive at 69/56. BP improved, 100/74 this morning Plan: Provide albumin in 1/2NS for hypotension, if necessary. Continue broad spectrum antibiotics. (3) HCAP (healthcare-associated pneumonia) Current Visit: Yes Status: Acute CXR suggestive of pneumonia--right pleural effusion, left basilar airspace disease and diffuse right lung airspace disease greatest within right base CTA chest shows consolidation in RUL with underlying neoplasm and possible superimposed infection. Increased consolidation in lung bases, likely superimposed pneumonia. Continue broad spectrum vanc, zosyn, and cefepime. (4) COPD with exacerbation Current Visit: No Status: Acute History of COPD. Continue DuoNeb. Continue Solumedrol 40 q6h. (5) Metastatic primary lung cancer Current Visit: No Status: Acute History of lung adenocarcinoma s/p radiation with mets to brain, bone, liver, and right adrenal. Qualifiers: Laterality: right Qualified Code(s): C34.91 - Malignant neoplasm of unspecified part of right bronchus or lung (6) Generalized pain Current Visit: No Status: Acute POA requests pain med drip to keep patient comfortable. Fentanyl drip, sublingual oxycodone for pain control (7) Anemia Current Visit: No Status: Chronic History of anemia. Baseline 8-9. 03/24/18 Hb of 7.8 --> 6.9. Received 1 unit prbc Continue to monitor. Qualifiers: Anemia type: other cause Other causes of anemia: chronic disease, neoplastic Qualified Code(s): D63.0 - Anemia in neoplastic disease (8) Anxiety Current Visit: No Status: Acute 2 gm IV Q2H Subjective Principal diagnosis: Acute respiratory failure with hypoxia Interval history: Patient seen and examined this morning, his brother (CHAPARRO) is at bedside. Patient is resting and doesn't respond to my questions. Objective PUL Vital signs: Last Vital Signs Temp 97.8 F 03/25/18 07:49 Pulse 77 03/25/18 08:00 Resp 20 03/25/18 08:00 BP 100/74 03/25/18 08:00 Pulse Ox 94 03/25/18 08:00 General appearance: asleep, other (mild distress, cachexia) Eyes: nonicteric Effort: mildly labored Auscultation: right: wheezes (diffuse), bilateral: rales (diffuse) Cardiovascular: regular rate and rhythm Gastrointestinal: hypoactive bowel sounds, soft, non-tender, non-distended Integumentary: normal Extremities: no cyanosis, no edema, no clubbing, pink and warm, pulses normal non-focal exam anxious Results - Laboratory Findings CBC and BMP: 03/24/18 10:25 03/24/18 04:14 ABG ABG pH 7.44 pH Units (7.32-7.45) 03/23/18 15:47 ABG pCO2 36 mmHg (35-45) 03/23/18 15:47 ABG pO2 81 mmHg (85-104) L 03/23/18 15:47 ABG O2 Saturation 96 % (95-98) 03/23/18 15:47 PT/INR, D-dimer PT 16.2 Seconds (9.4-12.1) H 03/23/18 15:24 Abnormal lab findings: Abnormal lab results RBC 2.22 M/mcL (4.19-5.50) L 03/24/18 10:25 Hgb 6.9 g/dL (12.9-16.9) L 03/24/18 10:25 Hct 21.9 % (37.5-50.1) L 03/24/18 10:25 MCHC 31.5 g/dL (31.6-35.5) L 03/24/18 10:25 RDW 21.6 % (11.5-14.5) H 03/24/18 10:25 Plt Count 100 K/mcL (140-400) L 03/24/18 10:25 Band Neutrophils % 10.0 % (0-4) H 03/24/18 04:14 Metamyelocytes % 2.0 % (0) H 03/24/18 04:14 Nucleated RBCs/100 WBC 4.1 /100 WBC (0) H 03/24/18 04:14 Polychromasia 1+ (Not Present) A 03/24/18 04:14 Anisocytosis 1+ (Not Present) A 03/24/18 04:14 PT 16.2 Seconds (9.4-12.1) H 03/23/18 15:24 ABG pO2 81 mmHg (85-104) L 03/23/18 15:47 BUN 22 mg/dL (6-20) H 03/24/18 04:14 Creatinine 0.65 mg/dL (0.70-1.30) L 03/24/18 04:14 BUN/Creatinine Ratio 34 (6-26) H 03/24/18 04:14 Glucose 132 mg/dL (70-105) H 03/24/18 04:14 POC Glucose 140 mg/dL (70-99) H 03/23/18 20:37 Lactic Acid 2.7 mmol/L (0.5-2.2) H 03/24/18 04:14 Total Bilirubin 1.6 mg/dL (0.3-1.0) H 03/24/18 04:14 Direct Bilirubin 0.7 mg/dL (0.0-0.2) H 03/23/18 15:24 Indirect Bilirubin 1.3 mg/dL (0.0-1.2) H 03/23/18 15:24 AST 268 Units/L (13-39) H 03/24/18 04:14 ALT 172 Units/L (7-52) H 03/24/18 04:14 Alkaline Phosphatase 200 Units/L (34-104) H 03/24/18 04:14 Troponin I 0.04 ng/mL (< 0.04) H* 03/24/18 04:14 Serum Total Protein 5.4 g/dL (6.4-8.9) L 03/24/18 04:14 Albumin 3.1 g/dL (3.5-5.7) L 03/24/18 04:14 Globulin 2.3 g/dL (2.4-3.5) L 03/24/18 04:14 Streptococcus sp PCR DETECTED (Not Detect) A 03/23/18 15:36 Strep pneumoniae (PCR) DETECTED (Not Detect) A 03/23/18 15:36 - Microbiology Findings Microbiology Findings: Microbiology, Last 48 Hours 03/23/18 15:33 Blood Culture - Preliminary Peripheral Venipuncture Streptococcus pneumoniae 03/23/18 15:36 Blood Culture - Preliminary Peripheral Venipuncture Streptococcus pneumoniae 03/24/18 09:16 Blood Culture - Preliminary Peripheral Venipuncture Culture is incubating and being continuously monitored for growth. Final report to follow. 03/24/18 09:16 Blood Culture - Preliminary Peripheral Venipuncture Culture is incubating and being continuously monitored for growth. Final report to follow. - Clinical Findings Intake & Output: Intake & Output 03/24/18 03/25/18 03/25/18 23:59 07:59 15:59 Intake Total 1274 / 1274 130 / 130 Output Total 1000 / 1000 500 / 500 Balance 274 / 274 -370 / -370
[2018-03-25] MEDS ORDERED: cefTRIAXone 2,000 MG in Water for inj. (sterile) 20 ML 20 ML IVP SCH (11:00)
[2018-03-25] MEDS: MethylPREDNISolone 40 MG/ML VIAL IVP SCH (11:18)
[2018-03-25] MEDS: *HR* LORazepam 2 MG/ML VIAL IVP PRN ×2 (11:18→13:47)
[2018-03-25 14:26] VITALS: BP 100/72
[2018-03-25] MEDS ORDERED: OXYCODONE Oral CONC 10 MG/0.5 ML ORAL.SYG SL PRN ×2 (14:38)
[2018-03-25] MEDS ORDERED: FentaNYL (PF) 1,000 MCG in 0.9 % Sodium Chloride 80 ML IVC SCH (14:38)
[2018-03-25] MEDS ORDERED: Naloxone 0.4 MG/ML INJ IVP PRN (14:38)
[2018-03-25] MEDS ORDERED: Ipratropium/Albuterol Neb 3 ML IH PRN (14:50)
--- NOTE | 2018-03-25 14:55 | Electrocardiograph Report ---
[address] [address] Test Date: 2018-03-23 Pat Name: Fredy Timmons Department: EXAM3 Room: 2A45 Gender: M [employer] Room Teacher: : 1965 Requested By: Coty See Order Number: [id number] Reading MD: Flex Bryan Measurements Intervals [place] Rate: 124 P: 73 CA: 117 QRS: 41 QRSD: 96 T: 72 QT: 298 QTc: 428 Interpretive Statements Sinus tachycardia Probable left atrial enlargement RSR' in V1 or V2, right VCD or RVH Electronically Signed On 03-25-2018 14:53:52 EST by Flex Bryan
[2018-03-25] MEDS ORDERED: MethylPREDNISolone 40 MG/ML VIAL IVP SCH (16:00)
[2018-03-25] MEDS ORDERED: Ipratropium/Albuterol Neb 3 ML IH SCH (17:00)
[2018-03-25] MEDS ORDERED: Aminoglycoside Consult 1 EACH MC ONE (17:44)
[2018-03-25] MEDS ORDERED: *HR* Heparin 5,000 UNIT/ML VIAL SQ SCH (18:00)
[2018-03-26] MEDS ORDERED: Docusate Oral Soln 100 MG/10 ML UDC PO SCH (09:00)
[2018-03-26] MEDS ORDERED: cefTRIAXone 2,000 MG in Water for inj. (sterile) 20 ML 20 ML IVP SCH (11:00)
== END 2018-03-25 17:45 | disposition hospice, inpatient (51) | DRG 871 ==
LOC: EMEROOARM 15:09 → ICNU 19:59 → 2ANU 03-25 14:04
PROVIDERS: ADMIT Internal Medicine; ATTEND Internal Medicine

== ENCOUNTER 2018-03-25 15:24 | Inpatient (IN) ==
[2018-03-25] MEDS ORDERED: Bisacodyl 10 MG RECTAL SUPPOSITORY RC PRN (15:28)
[2018-03-25] MEDS ORDERED: Atropine Sulfate 1% 40 DROP/2 ML BOTTLE SL PRN (15:28)
[2018-03-25] MEDS ORDERED: Albuterol 2.5 MG/3 ML NEBULIZER IH PRN (15:28)
[2018-03-25] MEDS ORDERED: Scopolamine Patch 1.5 MG PATCH.TD72 TD SCH (15:30)
[2018-03-25] MEDS ORDERED: *HR* FentaNYL (PF) 100 MCG/2 ML VIAL IVP PRN (15:34)
[2018-03-25] MEDS ORDERED: FentaNYL (PF) 1,000 MCG in 0.9 % Sodium Chloride 80 ML IVC SCH (15:45)
[2018-03-25 19:45] VITALS: BP 128/81
[2018-03-25] MEDS: *HR* LORazepam 2 MG/ML VIAL IVP PRN ×2 (20:35→22:37)
--- NOTE | 2018-03-26 15:01 | Pallative History & Physical ---
Date of Encounter: 03/26/18 Time of Encounter: 14:58 Internal Medicine - H&P: HPI Admitted From: Intrahospital Transfer Plans for Post Hospital Care: at Medical Facility History of present illness: Mr. Timmons is a 52 year old male that was recently diagnosed with lung cancer, with mets to adrenals, liver, bones, brain, on radiation therapy, presented with SOB. CTA showed increased lung mass, infiltrate vs radiation pneumonitis, pleura l effusion. Strep pneumonia +, anemia and hypotension. Pt was admitted to MICU. Pt's brother Jacques is the MPOA, at first wanted all interventions, then successively decided for DNRCC and comfort care. Palliative care met with pt's brother and decision was made for transfer to hospice. Patient was symptomatic and admitted to [facility]. he was kept comfortable and before being seen today. Past Med Surg Social Fam HX - Past Medical History Medical history: COPD Additional medical history: lung cancer w/brain mets Psychiatric history: no psych history - Past Surgical History Surgical History: no surgical history - Social History Smoking Status: Current every day smoker Smokeless Tobacco Status: No Alcohol use: none Drug use: none - Family History Father Hx Family Respiratory Disorders: Yes (COPD) Internal Medicine - H&P: Meds Albuterol Sulfate [Albuterol Inhaler] 1 - 2 puff IH Q4HR PRN 30 Days #1 hfa.aer.ad 03/18/18 [Rx] Alcohol Antiseptic Pads [Alcohol Pads] 1 each TP ACHS #100 med..pad 03/18/18 [Rx] Bisacodyl [Dulcolax] 10 mg RC DAILY PRN #30 supp.rect 03/18/18 [Rx] Blood Sugar Diagnostic [Blood Glucose Test Strip] 1 each ACHS #100 strip 03/18/18 [Rx] Blood-Glucose Meter [Blood Glucose Monitoring] 1 each ACHS #1 each 03/18/18 [Rx] Dextrose [Glucose] 4 gm PO PRN PRN #10 tab.chew 03/18/18 [Rx] DiphenhydraMINE [Benadryl] 25 mg PO Q8HR PRN #10 capsule 03/18/18 [Rx] FentaNYL PATCH [Duragesic] 25 mcg TD Q72H 9 Days #3 patch.td72 03/18/18 [Rx] Fluconazole [Diflucan] 100 mg PO DAILY #7 tablet 03/18/18 [Rx] Fluticasone/Umeclidin/Vilanter [Trelegy Ellipta 100-62.5-25] 1 each IH DAILY 30 Days #1 blst.w.dev 03/18/18 [Rx] Insulin LISPRO [Humalog Kwikpen U-100] 0 unit SQ ACHS #5 mls 03/18/18 [Rx] Ipratropium/Albuterol Neb [Duoneb] 3 ml IH Q4HWA PRN 30 Days inhsol 03/18/18 [Rx] Lancets 1 each MC ACHS #100 each 03/18/18 [Rx] Mag Hydrox/Al Hydrox/Simeth [Maalox] 30 ml PO Q4H PRN #30 udc 03/18/18 [Rx] Melatonin 3 mg PO HS PRN #10 tablet 03/18/18 [Rx] Nebulizer and Compressor [Ombra Compressor System] 1 each MC Q4H PRN #1 each 03/18/18 [Rx] Omeprazole [PriLOSEC] 40 mg PO DAILY@0730 #30 capsule.dr 03/18/18 [Rx] Polyethylene Glycol 3350 [MiraLAX] 17 gm PO DAILY #30 powd.pack 03/18/18 [Rx] Sennosides/Docusate Sodium [Senna Plus] 1 each PO BID #60 tablet 03/18/18 [Rx] Stomatitis Mixture 5 ml PO QIDAC 30 Days mls 03/18/18 [Rx] levETIRAcetam [Keppra] 500 mg PO Q12HR 30 Days #60 tablet 03/18/18 [Rx] Dexamethasone [Decadron] 4 mg PO BID 21 Days #25 tab 03/19/18 [Rx] Allergy/AdvReac Type Severity Reaction Status Date / Time No Known Allergies Allergy Verified 03/23/18 15:26 Palliative Care-Exam - Constitutional Vitals: Temp Pulse Resp BP Pulse Ox 98.0 F 129 19 128/81 93 03/25/18 19:45 03/25/18 19:45 03/25/18 19:45 03/25/18 19:45 03/25/18 19:45 Palliative Quality Palliative Quality: Screen for Code Status: NA, Screen for Goals of Care: NA, Screen for Pain: NA, If Pain Regimen Started, Initiate Bowel Regimen: NA, Screen for Nausea/Vomitting: NA
--- NOTE | 2018-03-26 15:07 | Death Note ---
Discharge Sum: Summary - Date and Time Date of admission: 03/25/18 17:47 Date of : 03/26/18 Time of : 00:02 - Summary Details: Patient with history of metastatic lung cancer, admitted to hospice care for pain, dyspnea and end-of-life care. - Additional Data Confirmation of as documented by pronouncing clinician: no pulse, no respirations, no heart sounds, pupils fixed and dilated Family: at bedside Attending/PCP notified?: Yes Attending physician: Lizeth Cintron MD Was code activated?: No Autopsy requested?: No rules examiner notified?: No Organ bank notified?: Yes Advance directives: Yes Hospice patient?: Yes Discharge Sum: Diag - PCOD Probable Cause of : Respiratory arrest Discharge Sum: Prov - Provider Primary care physician: PCP NONE Admitting clinician: Lizeth Cintron Attending physician on admission: Lizeth Cintron Consults: 03/25/18 15:28 Consult to Palliative Care [CONS] Routine Comment: Consulting Provider: Palliative Care [place] Reason for Consult: hospice Call Completed: Yes
== END 2018-03-26 01:35 | disposition expired | DRG 180 ==
LOC: 2ANU 17:47
PROVIDERS: ADMIT Internal Medicine Hospice and Palliative Medicine; ATTEND Internal Medicine Hospice and Palliative Medicine